=== PATIENT | female | born 1980 | race Caucasian/White ===

== ENCOUNTER → 2024-04-04 14:25 | Outpatient (BNVA) | payer MEDICAID, SELFPAY | PROVIDERS: Visit Provider Orthopaedic Surgery | DX: M54.9 Dorsalgia, unspecified (principal); M54.42 Lumbago with sciatica, left side | CPT/HCPCS: 72072; 72100; 99204 ==

== ENCOUNTER → 2024-04-06 12:46 | Outpatient (BNVA) | payer MEDICAID, SELFPAY | PROVIDERS: Visit Provider Orthopaedic Surgery | DX: Z09 Encounter for follow-up examination after completed treatment for conditions other than malignant neoplasm (principal) | CPT/HCPCS: 99214 ==

== ENCOUNTER 2024-04-12 11:38 | Inpatient (IN) | payer MEDICAID, SELFPAY ==
[2024-04-12] VITALS (23 sets, daily range): BP systolic 94–149; BP diastolic 65–105; PULSE 88–105; RESP 13–20; TEMP 36.2–36.9; O2SAT 90–100; BMI 34.0
[2024-04-12 06:27] LABS: Glucose Point of Care 135 mg/dL (70-110)
--- NOTE | 2024-04-12 06:36 | W.PM.OPSUD ---
Surgery/Procedure H&P Update DATE OF PROCEDURE: April 12, 2024 DATE H&P PERFORMED: 04/06/24 H&P UPDATE INFORMATION: I have reviewed H&P completed within last 30 days, I have examined patient prior to procedure and No changes to prior documentation PLANNED PROCEDURE: Operation Date: 04/12/24 07:00 Proposed Procedures p Spinal Fusion PSF(Not Applicable) - Anupam Garcia DO s Thoracic Decompression(Not Applicable) - Anupam Garcia DO
--- NOTE | 2024-04-12 06:42 | ANES.PREANE2 ---
Pre-Anesthetic Assessment Height/Weight: Height 1.55 m Weight 81.647 kg Temp Pulse Resp BP Pulse Ox O2 Del Method 97.1 F L 105 H 18 138/105 98 Room Air 04/12/24 05:59 04/12/24 05:59 04/12/24 05:59 04/12/24 05:59 04/12/24 05:59 04/12/24 05:59 Operation Date: 04/12/24 07:00 Proposed Procedures p Spinal Fusion PSF(Not Applicable) - Anupam Garcia DO s Thoracic Decompression(Not Applicable) - Anupam Garcia DO Familial anesthetic complications: None Was Beta Don taken within 24 hours: N/A Was Clonidine taken within 24 hours: N/A Last intake: Intake Last Liquid Date 04/11/24 Last Liquid Time 23:59 Last Solid Date 04/11/24 Last Solid Time 18:00 Social Tobacco and No alcohol Exam alert, oriented x 3, clear to auscultation bilaterally and regular rate & rhythm Airway Mallampati: Class II Dentition: other (none) Metabolic Diabetes Mellitus Anesthetic Plan ASA status: 3 Anesthesia: General Risk of > 500 ml blood loss (7ml/kg in children): Yes, adequate IV access and fluids planned Medications/Allergies Home Medications Medication Instructions Recorded Confirmed Last Taken Type gabapentin 300 mg capsule 300 mg PO TID 04/04/24 04/11/24 04/11/24 History trazodone 100 mg tablet 100 mg PO BEDTIME 04/04/24 04/11/24 04/11/24 History dulaglutide 0.75 mg/0.5 mL 0.75 mg SUBCUT .WEEKLY 04/11/24 04/11/24 04/04/24 History subcutaneous pen injector (Trulicity) insulin glargine 100 unit/mL (3 20 unit SUBCUT QAM 04/11/24 04/11/24 04/11/24 History mL) subcutaneous pen (Lantus Solostar U-100 Insulin) insulin lispro 100 unit/mL 15 unit SUBCUT TID 04/11/24 04/11/24 04/11/24 History subcutaneous pen metformin 500 mg tablet 500 mg PO BID 04/11/24 04/11/24 04/11/24 History quetiapine 50 mg tablet (Seroquel) 50 mg PO DAILY 04/11/24 04/11/24 04/11/24 History Allergies Allergy/AdvReac Type Severity Reaction Status Date / Time No Known Allergies Allergy Verified 04/11/24 11:58 [facility] Anesthesia Social History Smoking and tobacco/nicotine status: unknown if used tobacco/nicotine Data Anesthesia 04/12/24 06:24 04/12/24 06:24 Cardiac Studies: No Data to Display
[2024-04-12 06:43] LABS: Basophils % 0.6 %; Eosinophils # 0.1 10^3/uL (0.0-0.8); Eosinophils % 2.1 %; Hematocrit 41.3 % (36-47); Lymphocytes # 1.8 10^3/uL (0.8-4.8); Lymphocytes % 28.4 %; Mean Corpuscular HGB Conc 32.2 g/dL (30-55); Mean Corpuscular Hemoglobin 27.8 pg (27-33); Mean Corpuscular Volume 86.2 fl (85-98); Mean Platelet Volume 9.9 fL (7.4-10.4); Monocytes # 0.4 10^3/uL (0.2-0.9); Neutrophils # 3.89 10^3/uL (1.8-7.7); Neutrophils % 61.6 %; Nucleated Red Blood Cells % 0 %; Platelet Count 220 10^3/cmm (157-399); Red Blood Count 4.79 10^6/uL (3.85-5.65); Red Cell Distribution Width 14.3 % (12.1-15.1); White Blood Count 6.31 10^3/uL (3.29-11.43)
[2024-04-12 06:59] LABS: Anion Gap 16.4 (5-19); Blood Urea Nitrogen 12 mg/dL (6-20); Calcium 9.2 mg/dL (8.5-10.5); Carbon Dioxide 27 mmol/L (22-29); Chloride 98 mmol/L (98-107); Creatinine Clr Calc Pharmacy 117.0691; Glomerular Filtration Rate 109.1 mL/min (90-130); Glucose 130 mg/dL (65-115); Osmolality Calculated 286 mOsm/kg (285-295); Potassium 4.4 mmol/L (3.5-5.1); Sodium 137 mmol/L (136-145)
[2024-04-12] MEDS: ceFAZolin 2,000 mg SDV 2000 MG IVP ×3 (08:00→23:35)
[2024-04-12] MEDS: lidocaine-epi 1% 20 mL INJ INJECTION (08:40)
[2024-04-12] MEDS: VANCOMYCIN ADD-Vantage 1,000 MG VIAL 1000 MG XX (08:41)
[2024-04-12] MEDS: heparin, porcine 1,000 unit/mL INJ 10 mL 10000 UNIT IRRIGATION (08:42)
--- NOTE | 2024-04-12 09:47 | PC.NURSE ---
updated patient's family at [id number]
--- NOTE | 2024-04-12 11:11 | P.OP_ITS ---
Operative Report Date of procedure: April 12, 2024 Pre-op diagnosis: L1 burst fracture Kyphotic deformity Post-op diagnosis: same Procedure done: 1. T10-L3 posterior spine fusion 2. T10-L3 posterior spine instrumentation 3. T12-L1 laminectomy and bilateral facetectomies 4. L1-L2 laminectomy and bilateral facetectomies 5. Kyphotic deformity correction 6. Use of computer navigation stereotactic for the spine 7. Bone marrow aspirate from right iliac crest 8. Use of autograft from same incision 9. Use of allograft Surgeon: Anupam Garcia DO Estimated blood loss (mL): 500 Procedure: 1. T10-L3 posterior spine fusion 2. T10-L3 posterior spine instrumentation 3. T12-L1 laminectomy and bilateral facetectomies 4. L1-L2 laminectomy and bilateral facetectomies 5. Kyphotic deformity correction 6. Use of computer navigation stereotactic for the spine 7. Bone marrow aspirate from right iliac crest 8. Use of autograft from same incision 9. Use of allograft Patient is brought to the operative suite after undergoing anesthesia was placed in the prone position. All areas of impingement were well-padded. Patient was prepped and draped in the normal sterile fashion. Skin incision was made from T10 down to L3. Subperiosteal dissection was made out to the transverse processes of T10-L3 bilaterally. Next attention was brought to getting the bone marrow aspirate. This was done by making a skin incision over the right iliac crest. The regenerate cell bone marrow aspiration kit was used. The awl was inserted into the iliac crest. And then the bone marrow aspirate was aspirated from the right iliac crest. This was then used on the bone graft that was taken. As well as mixed with the ostial amp bone graft. Next attention was brought to placing the fiducial for the computer navigation. This was done by placing 2 pins into the right iliac crest. The fiducial was attached to the 2 pins. The 2 pins were later removed from the iliac crest. Next the C-arm was brought in to spin around the patient. This information was later used for placing pedicle screws. Next attention was brought to placing pedicle screws. This was done by using a high-speed bur to start the starting point of the pedicle followed by using the computer navigated gearshift. Followed by the pedicle feeler. Followed by placing the screw using computer navigation. Screws were placed at L3 bilaterally L2 bilaterally. L1 was skipped due to the severity of the burst fracture. Screws were then placed at T12 bilaterally, T11 bilaterally and T10 bilaterally. Next attention was brought to the laminectomies. T12-L1 space was identified first. Laminectomy was performed by using a rongeur to take down the spinous processes. The high-speed bur was then used to perform the laminectomy as well as facetectomies bilateral. Remaining bone was used taken down with the Jocelin son rongeur. This was later used for bone graft. The T12 nerve roots were identified bilaterally and completely freed from the facet joints. This was done bilaterally. The L1 nerve roots were traced around the L1 pedicles. Next attention was brought to the L1-L2 level. Again the spinous process was taken down with a rongeur. The high-speed bur was used to take down the lamina as well as the facets bilaterally of L1-L2. The Kerrison rongeur was used to take the remaining bone. The L1 nerve was completely freed up from the facets bilaterally and the ligamentum flavum was taken down as well. Ligamentum flavum was taken down to T12-L1 level as well. The L5 to nerve was traced from the L to pedicles bilaterally now that the bone is completely freed from the posterior aspect of the spine attention can be brought to correcting the deformity. The deformity was corrected by placing a straight hernan. The L2 and L3 screws were locked to the hernan distally bilaterally. And then a reduction tool was used on the T12 screw. The hernan was reduced into the tulips bilaterally. Screws remain loose. And then the hernan beard was placed in the T12 vertebrae was distracted superiorly. In order to facilitate reduction of the kyphosis by reducing the spine to the hernan as well as distracting the T12 vertebrae vertical to the L1 fracture. Next the screws were sequentially reduced into the hernan bilaterally up to T10. The screws were then torqued and locked in position from T10 down to L3. AP lateral fluoroscopy was taken and showed that the fracture and kyphosis was reduced. Wounds were then irrigated. Vancomycin powder was placed as well as a deep drain. And then wound was closed in a layered fashion with 0 Vicryl 2-0 Vicryl and Monocryl suture. Sterile dressings were applied and patient was transferred to the PACU in stable condition.
[2024-04-12] MEDS: midazolam 1 mg/mL INJ 2 mL 2 MG IVP (11:33)
[2024-04-12] MEDS: fentaNYL 50 mcg/mL INJ 2mL IVP (12:00)
--- NOTE | 2024-04-12 12:28 | XR_ITS ---
WS: [id number] C-ARM RADIOGRAPHS LUMBAR SPINE; 3 IMAGES HISTORY: OR PIC, SPINAL FUSION COMPARISON: None available. Intraoperative imaging during spinal fusion at the thoracolumbar junction. Pedicle screws and vertica l rods are identified and extends from T10-L3. XR/XR lumbar spine 2-3V* [id number] IMPRESSION: Intraoperative imaging during spinal fusion at the thoracolumbar junction. Fusi on stabilizing the severe L1 compression fracture.
[2024-04-12 12:29] LABS: Glucose Point of Care 189 mg/dL (70-110)
--- NOTE | 2024-04-12 12:30 | ANE.PACU2 ---
Inpatient post-anesthesia follow up: Airway intact: Yes Vital signs: Temperature 97.9 F Pulse Rate 101 Respiratory Rate 16 Blood Pressure 149/97 Pulse Oximetry 95 Oxygen Delivery Me thod Nasal Cannula Oxygen Flow Rate 3 Fraction of Inspir ed Oxygen Hydration adequate: Yes Nausea and vomiting: No Pain level: 1 Mental status: Baseline
[2024-04-12] MEDS: lactated ringers 1,000 ML 30 ML IV (13:19)
[2024-04-12] MEDS: ketorolac 30 mg/mL INJ IVP ×2 (13:20→23:36)
[2024-04-12] MEDS: morphine 4 mg/mL SDV 1 mL 2 MG IVP ×3 (13:20→21:31)
[2024-04-12] MEDS: HYDROcodone-acetaminophen 5-325 mg Tablet PO ×2 (14:54→20:33)
[2024-04-12] MEDS: gabapentin 300 mg Capsule PO ×2 (14:55→20:33)
[2024-04-12 16:36] LABS: Glucose Point of Care 241 mg/dL (70-110)
[2024-04-12] MEDS: metformin 500 mg Tablet PO (17:28)
[2024-04-12] MEDS: docusate sodium 100 mg Capsule PO (17:28)
[2024-04-12] MEDS: insulin lispro 100 unit/1 mL 15 UNIT SUBCUT (17:33)
[2024-04-12] MEDS: trazodone 100 mg Tablet PO (20:33)
[2024-04-13 01:17] VITALS: BP 104/71
[2024-04-13] MEDS: HYDROcodone-acetaminophen 5-325 mg Tablet PO ×3 (01:18→13:40)
[2024-04-13 03:45] VITALS: BP 115/75; PULSE 95; RESP 19; TEMP 36.7; O2SAT 98
[2024-04-13 05:11] LABS: Basophils % 0.3 %; Eosinophils % 0.4 %; Hematocrit 29.5 % (36-47); Lymphocytes # 1.8 10^3/uL (0.8-4.8); Lymphocytes % 26.8 %; Mean Corpuscular HGB Conc 31.5 g/dL (30-55); Mean Corpuscular Volume 88.9 fl (85-98); Mean Platelet Volume 10.9 fL (7.4-10.4); Monocytes # 0.5 10^3/uL (0.2-0.9); Monocytes % 6.9 %; Neutrophils # 4.44 10^3/uL (1.8-7.7); Neutrophils % 65.2 %; Nucleated Red Blood Cells % 0 %; Platelet Count 192 10^3/cmm (157-399); Red Blood Count 3.32 10^6/uL (3.85-5.65); Red Cell Distribution Width 14.7 % (12.1-15.1); White Blood Count 6.82 10^3/uL (3.29-11.43)
[2024-04-13] MEDS: ketorolac 30 mg/mL INJ IVP ×2 (05:36→12:15)
[2024-04-13] MEDS: insulin glargine 100 units/1 mL 20 UNIT SUBCUT (05:37)
[2024-04-13 06:32] LABS: Alanine Aminotransferase 10 U/L (0-33); Albumin Level 3.4 g/dL (3.5-5.2); Alkaline Phosphatase 58 U/L (35-105); Anion Gap 14.3 (5-19); Aspartate Amino Transferase 27 U/L (0-32); Blood Urea Nitrogen 26 mg/dL (6-20); Calcium 7.7 mg/dL (8.5-10.5); Carbon Dioxide 23 mmol/L (22-29); Chloride 98 mmol/L (98-107); Creatinine Clr Calc Pharmacy 70.9267; Globulin 2.3 g/dL (1.3-4.6); Glomerular Filtration Rate 60.5 mL/min (90-130); Glucose 245 mg/dL (65-115); Osmolality Calculated 285 mOsm/kg (285-295); Potassium 4.3 mmol/L (3.5-5.1); Sodium 131 mmol/L (136-145); Total Bilirubin 0.2 mg/dL (0.15-1.2); Total Protein 5.7 g/dL (6.6-8.7)
[2024-04-13 07:47] VITALS: BP 98/60; PULSE 95; RESP 16; TEMP 36.6; O2SAT 99
[2024-04-13] MEDS: quetiapine 25 mg Tablet 50 MG PO (08:29)
[2024-04-13] MEDS: metformin 500 mg Tablet PO (08:30)
[2024-04-13] MEDS: gabapentin 300 mg Capsule PO (08:30)
[2024-04-13] MEDS: docusate sodium 100 mg Capsule PO (08:30)
[2024-04-13] MEDS: insulin lispro 100 unit/1 mL 15 UNIT SUBCUT ×2 (08:31→12:17)
[2024-04-13] MEDS: ceFAZolin 2,000 mg SDV 2000 MG IVP (08:31)
--- NOTE | 2024-04-13 11:14 | PM.DCS ---
Discharge Providers Date of Admission: 04/12/24 11:38 Date of Discharge: April 13, 2024 Attending Provider at Admission: Anupam Garcia DO Attending Provider at Discharge: Anupam Garcia DO Physical Exam Narrative: Patient doing well up ambulating pain relatively controlled. Urinary Catheter Management: Massey: Cath Placed During This Visit: yes, but has since been removed by the nurse Reason for Continuing Indwelling Catheter: Decision to DC Catheter Urinary Catheter Date of Insertion: 04/12/24 Urinary Catheter Time of Insertion: 07:15 Date Urinary Catheter Removed: 04/13/24 Time Urinary Catheter Discontinued: 03:00 Discharge Data Studies Completed and Pending Pending at discharge Category Date Time Status C-arm Fluoroscopy [id number] Routine Exams 04/12/24 12:27 Ordered XR lumbar spine 2-3V* [id number] Routine Exams 04/12/24 12:28 Taken Laboratory Results WBC 6.82 10^3/uL (3.29-11.43) 04/13/24 04:50 RBC 3.32 10^6/uL (3.85-5.65) L 04/13/24 04:50 Hgb 9.30 g/dL (11.27-16.99) L D 04/13/24 04:50 Hct 29.5 % (36-47) L 04/13/24 04:50 MCV 88.9 fl (85-98) 04/13/24 04:50 MCH 28.0 pg (27-33) 04/13/24 04:50 MCHC 31.5 g/dL (30-55) 04/13/24 04:50 RDW 14.7 % (12.1-15.1) 04/13/24 04:50 Plt Count 192 10^3/cmm (157-399) 04/13/24 04:50 MPV 10.9 fL (7.4-10.4) H 04/13/24 04:50 Neut % (Auto) 65.2 % 04/13/24 04:50 Lymph % (Auto) 26.8 % 04/13/24 04:50 [place] % (Auto) 6.9 % 04/13/24 04:50 Eos % (Auto) 0.4 % 04/13/24 04:50 Baso % (Auto) 0.3 % 04/13/24 04:50 Neut # (Auto) 4.44 10^3/uL (1.8-7.7) 04/13/24 04:50 Lymph # (Auto) 1.8 10^3/uL (0.8-4.8) 04/13/24 04:50 [place] # (Auto) 0.5 10^3/uL (0.2-0.9) 04/13/24 04:50 Eos # (Auto) 0.0 10^3/uL (0.0-0.8) 04/13/24 04:50 Baso # (Auto) 0.0 10^3/uL (0.0-0.1) 04/13/24 04:50 Nucleated RBC % (auto) 0 % 04/13/24 04:50 Nucleated RBCs # 0.0 /100WBC 04/13/24 04:50 Sodium 131 mmol/L (136-145) L 04/13/24 06:04 Potassium 4.3 mmol/L (3.5-5.1) 04/13/24 06:04 Chloride 98 mmol/L (98-107) 04/13/24 06:04 Carbon Dioxide 23 mmol/L (22-29) 04/13/24 06:04 Anion Gap 14.3 (5-19) 04/13/24 06:04 BUN 26 mg/dL (6-20) H 04/13/24 06:04 Creatinine 1.0 mg/dL (0.5-0.9) H 04/13/24 06:04 GFR Calculation 60.5 mL/min (90-130) L 04/13/24 06:04 Glucose 245 mg/dL (65-115) H 04/13/24 06:04 POC Glucose 241 mg/dL (70-110) H 04/12/24 16:28 Calculated Osmolality 285 mOsm/kg (285-295) 04/13/24 06:04 Calcium 7.7 mg/dL (8.5-10.5) L 04/13/24 06:04 Total Bilirubin 0.2 mg/dL (0.15-1.2) 04/13/24 06:04 AST 27 U/L (0-32) 04/13/24 06:04 ALT 10 U/L (0-33) 04/13/24 06:04 Alkaline Phosphatase 58 U/L (35-105) 04/13/24 06:04 Total Protein 5.7 g/dL (6.6-8.7) L 04/13/24 06:04 Albumin 3.4 g/dL (3.5-5.2) L 04/13/24 06:04 Globulin 2.3 g/dL (1.3-4.6) 04/13/24 06:04 Blood Type A Positive 04/12/24 06:24 Rho(D) Type Rh positive 04/12/24 06:24 Antibody Screen Negative 04/12/24 06:24 Vitals Last Vital Signs Temp 97.8 F 04/13/24 07:47 Pulse 95 04/13/24 07:47 Resp 16 04/13/24 07:47 BP 98/60 04/13/24 07:47 Pulse Ox 99 04/13/24 07:47 O2 Del Method Room Air 04/13/24 07:47 O2 Flow Rate 3 04/12/24 12:30 Discharge Plan Discharge Patient Disposition: Home Condition: Stable Prescriptions: New hydrocodone-acetaminophen 5-325 mg tablet 1 - 2 tab PO .Q4-6H Qty: 40 0RF Continued trazodone 100 mg tablet 100 mg PO BEDTIME gabapentin 300 mg capsule 300 mg PO TID metformin 500 mg Tablet 500 mg PO BID insulin glargine [Lantus Solostar U-100 Insulin] 100 unit/mL (3 mL) Insulin Pen 20 unit SUBCUT QAM Trulicity 0.75 mg/0.5 mL Pen Injector 0.75 mg SUBCUT .WEEKLY insulin lispro 100 unit/mL Insulin Pen 15 unit SUBCUT TID Rx Instructions: takes on sliding scale starts at greater than 120(blood sugar) quetiapine [Seroquel] 50 mg Tablet 50 mg PO DAILY Discharge Orders: Discharge Order (Routine); Ordered 04/13/24 Ordered By: Anupam Garcia Discharge Diet: Advance as tolerated Discharge Activity: Limit activity as instructed Patient Instructions: Acute Wound Care (DC), Opioid Safety, Post Anesthesia Care Activity Restrictions/Additional Instructions: Thank you for [facility] for your care! The following is a list of instructions, from your provider, to follow upon your discharge to ensure you have the optimal recovery from your recent injury orsurgery. Follow-up care is a dailey part of your treatment and safety. Be sure to make and go to all appointments, and call your doctor if you are having problems. If you do not already have a follow-up appointment made, call Dr. Garcia office in the next 1-3 days to make follow up appointment for 1 weeks at [phone]. It is also a good idea to know your test results and keep a list of the medicines you take. Medications will be prescribed for you at your provider's discretion. These medications are to be used as instructed; if they are taken more often that prescribed they will not be refilled early and in most cases will not be refilled at all. > When a refill is needed,you should contact daniela van 2-3 business days before your prescription runs out. Medications will NOT be refilled by environmental management specialist providers after hours! > Many pain medications contain Tylenol (Acetaminophen). Do not consume more than 4,000 mg of Tylenol per day in total with any combination ofmedications. > Pain medications can cause constipation. Please use an over the counter stool softener as directed, while taking pain medications. Consulty our local pharmacist with questions or recommendations on stool softeners. If constipation persists, contact our office or your primary care provider. > While under our care,you are not to receive pain medications or other controlled substances from any other provider unless our office is notified and approves. Any attempts to do so will result in refusal to prescribe any further pain medications and possible dismissal from our practice. ? Keep dressing on until seen in clinic in 1 week. ? Showering is permitted, however we ask that you do not take a bath, sit in a whirlpool / Jacuzzi, or go swimming for 1 month. For only the first 2 days after surgery, lt wilt be necessary for you to cover your wound/dressing with plastic and tape to keep it dry. ? Walking is essential for the healing process after surgery. We would like you to slowly advance your walking. This should be done on relatively flat clear ground (inside or out) or can be done on a treadmill. Remember this goal does not have to happen all at once, slowly increase your distance and duration. This can be broken into more more than one walk per day as tolerated. Patients who walk as directed after surgery rarely require Physical Therapy. In the unlikely event this issue arises your provider will direct hospital staff to make the appropriate arrangements. ? No lifting over 5 pounds {a gallon of milk) or bending/twisting until further notice. Each of these activities places an unnecessary amount of stress onto the body and can impede the delicate healing process. > Instead of bending at the waist, keep your back straight and bend at the knees. > Instead of twisting your torso, keep your back straight and turn your entire body with your feet. ? You may sleep in any position which makes you comfortable. Many patients find comfort sleeping in a reclining chair. It is not abnormal to have difficulty sleeping for the first several weeks following your surgery. We recommend trying Benadry! or Tylenol PM as directed to help with your sleeping difficulties. Both medications are over the counter and available withoutprescription. ? NO SMOKING!!! Smoking dramatically increases the probability of developing postoperative wound infections. ? Common complaints after lumbar and/or thoracic spine surgery include, but are not limited to: numbness and/or tingling in the legs, pain around the incision and surrounding tissues, muscle spasms, or stiffness of the middle to low back. Contact our office if these symptoms persist or if an acute change occurs. ? No driving for the first 3-5days, and not while taking narcotics until seen at your follow-up appointment and cleared. There are no restrictions for riding on short trips, however if you take a longer trip, arrangements should be made to make regular stops to get out of the vehicle and stretch . ? Swelling is an unfortunate event that will take place with any surgery and is the primary source of your postoperative discomfort. While walking and regular approved activities helps control inflammation, there are additional steps you can take to minimizeswelling. > Place ice over the surgical site and surrounding tissue for twenty minutes, followed by applying a low/medium heat (heating pad) for an additional twenty minutes every 1-2 hours as needed for painrelief. > You may use of over the counter anti-inflammatory medications (Ibuprofen, Motrin, Aleve, Advil, etc) as directed on the package label. These types of medicines wm significantly reduce the amount of discomfort you experience after surgery from swelling. It should be noted that if you have and allergy to any of these medications, or a history of ulcers or kidney disease you should consult you primary care provider prior to starting these medications. Discharge Attestations Time Spent in Discharge Care*: less than 30 min Quality Metrics Clinical Quality Measures [ No reported AMI, CVA or VTE this stay] Coding Level of Care Code Acute Code for Chg Fwd
[2024-04-13 11:47] VITALS: BP 99/68; PULSE 107; RESP 17; TEMP 36.8; O2SAT 96
--- NOTE | 2024-04-13 14:00 | PC.NURSE ---
There are no out side pharmacies open today because it is Thanksgiving. Patient was discharged to her home in [place] which also has no pharmacies open either. Verbal order given to dispense two more Hydrocodone 5/325mg for patient to use at home. Dispenced as ordered.
[2024-04-13] MEDS: HYDROcodone-acetaminophen 5-325 mg Tablet 2 TAB PO (14:27)
== END 2024-04-13 14:00 | disposition home or self-care (01) | DRG 458 ==
LOC: MEDSURG 11:49
PROVIDERS: Anesthesiology; Admitting Provider Orthopaedic Surgery; Visit Provider Orthopaedic Surgery
PROC: 0RG7071 Fusion of 2 to 7 Thoracic Vertebral Joints with Autologous Tissue Substitute, Posterior Approach, Posterior Column, Open Approach (ICD-10-PCS; principal; 2024-04-12 07:00)
PROC: 0RG7071 Fusion of 2 to 7 Thoracic Vertebral Joints with Autologous Tissue Substitute, Posterior Approach, Posterior Column, Open Approach (ICD-10-PCS; CPT 63003; 2024-04-12 07:00)
DX: S32.012A Unstable burst fracture of first lumbar vertebra, initial encounter for closed fracture (principal); W19.XXXA Unspecified fall, initial encounter; E11.9 Type 2 diabetes mellitus without complications; Z79.4 Long term (current) use of insulin; Z79.84 Long term (current) use of oral hypoglycemic drugs; Z79.85 Long-term (current) use of injectable non-insulin antidiabetic drugs
CPT/HCPCS: 36415; 36416; 51702; 72100; 76000; 80048; 80053; 82962; 85025; 86850; 86900; 96372; 97161; 97530; C1713; J0131; J0330; J0690; J1100; J1171; J1644; J1815; J1885; J2250; J2270; J2371; J2405; J2704; J3010; J3370; J3490; J7120; L0460

== ENCOUNTER → 2024-04-27 15:21 | Outpatient (BNVA) | payer MEDICAID, SELFPAY | PROVIDERS: Visit Provider Orthopaedic Surgery | DX: Z98.1 Arthrodesis status (principal) | CPT/HCPCS: 99024 ==

== ENCOUNTER → 2024-06-01 16:07 | Outpatient (BNVA) | payer MEDICAID, SELFPAY | PROVIDERS: Visit Provider Orthopaedic Surgery | DX: Z98.1 Arthrodesis status (principal) | CPT/HCPCS: 72072; 72100; 99024 ==

== ENCOUNTER 2024-06-07 14:16 | Inpatient (IN) | payer MEDICAID, SELFPAY ==
--- NOTE | 2024-06-04 11:17 | SUR.PREOP ---
1116 Spoke with phone number [phone] and she(Nichole soon to be [id number]) stated she was not there and would relay message to her to call me back, and needed to go over her health history and medications, stated I would be here for another hr and reiterated time of arrival is 12 noon tomorrow,she verbalized understanding
--- NOTE | 2024-06-04 11:26 | SUR.PREOP ---
1125 patient called back and stated she could not get a ride down here and [facility] stated they did not have enough notice, I stated i would inform Dr Garcia and Ethan about this
[2024-06-07] VITALS (26 sets, daily range): BP systolic 110–167; BP diastolic 56–115; PULSE 98–109; RESP 14–20; TEMP 36.7–37; O2SAT 92–100; BMI 33.0
[2024-06-07 10:49] LABS: Glucose Point of Care 124 mg/dL (70-110)
[2024-06-07] MEDS: sodium chloride 0.9% 1,000 ML 30 ML IV (10:54)
--- NOTE | 2024-06-07 10:54 | W.PM.OPSUD ---
Surgery/Procedure H&P Update DATE OF PROCEDURE: June 07, 2024 DATE H&P PERFORMED: 06/01/24 H&P UPDATE INFORMATION: I have reviewed H&P completed within last 30 days, I have examined patient prior to procedure and No changes to prior documentation PREOP DIAGNOSIS: wound infection PLANNED PROCEDURE: Operation Date: 06/07/24 11:45 Proposed Procedures p Incision and Drainage of Back(Not Applicable) - Anupam Garcia DO
--- NOTE | 2024-06-07 10:59 | ANES.PREANE2 ---
Pre-Anesthetic Assessment Height/Weight: Height 5 ft 1 in Weight 175 lb Temp Pulse Resp BP Pulse Ox O2 Del Method 98.0 F 98 16 114/80 99 Room Air 06/07/24 10:32 06/07/24 10:32 06/07/24 10:32 06/07/24 10:32 06/07/24 10:32 06/07/24 10:32 Preop Diagnosis: wound infection Operation Date: 06/07/24 11:45 Proposed Procedures p Incision and Drainage of Back(Not Applicable) - Anupam Garcia, DO Was Beta Don taken within 24 hours: N/A Was Clonidine taken within 24 hours: Yes Last intake: Intake Last Liquid Date 06/06/24 Last Liquid Time 20:00 Last Solid Date 06/06/24 Last Solid Time 20:00 Social Tobacco and No alcohol Exam alert, oriented x 3 and regular rate & rhythm Decreased breath sounds bilaterally Airway Submandibular: within normal limits Cervical ROM: within normal limits Mallampati: Class II Comments: Comments: Edentulous Anesthetic Plan ASA status: 3 Anesthesia: General Other: No prior issues with anesthesia NPO since yesterday History of type 2 diabetes on insulin. Preop BS 124. Trulicity taken 05/30/2024 Current smoker Prior labs acceptable for procedure Plan for GETA Medications/Allergies Home Medications Medication Instructions Recorded Confirmed Last Taken Type gabapentin 300 mg capsule 300 mg PO TID 04/04/24 06/06/24 06/06/24 History dulaglutide 0.75 mg/0.5 mL 0.75 mg SUBCUT .WEEKLY 04/11/24 06/06/24 05/30/24 History subcutaneous pen injector (Trulicity) insulin glargine 100 unit/mL (3 20 unit SUBCUT QAM 04/11/24 06/06/24 06/06/24 History mL) subcutaneous pen (Lantus Solostar U-100 Insulin) insulin lispro 100 unit/mL 1 unit SUBCUT TID 04/11/24 06/06/24 06/06/24 History subcutaneous pen metformin 500 mg tablet 500 mg PO BID 04/11/24 06/06/24 06/06/24 History oxycodone 5 mg capsule 5 mg PO TID PRN pain 10 days #30 06/01/24 06/06/24 06/06/24 Rx caps baclofen 10 mg tablet 10 mg PO TID 06/06/24 06/06/24 06/06/24 History clonidine HCl 0.1 mg tablet 0.1 mg PO BID 06/06/24 06/06/24 06/06/24 History diclofenac sodium 75 mg 75 mg PO BID 06/06/24 06/06/24 06/06/24 History tablet,delayed release fluoxetine 40 mg capsule (Prozac) 80 mg PO DAILY 06/06/24 06/06/24 06/06/24 History Allergies Allergy/AdvReac Type Severity Reaction Status Date / Time hydrocodone Allergy ADR-Itching Verified 06/06/24 12:24 lithium Allergy Unknown Verified 06/06/24 12:15 mushroom Allergy Unknown Verified 06/06/24 12:15 trazodone Allergy Unknown Verified 06/06/24 12:15 Current Medications Generic Name Dose Route Start Last Admin Trade Name Freq PRN Reason Stop Dose Admin Sodium Chloride 1,000 mls @ 30 mls/hr 06/07/24 10:15 06/07/24 10:54 Sodium Chloride 0.9% IV 06/08/24 10:14 30 mls/hr .Q24H BRITTANY Administration PFSH Anesthesia Social History Smoking and tobacco/nicotine status: unknown if used tobacco/nicotine Data Anesthesia Cardiac Studies: No Data to Display
[2024-06-07] MEDS: fentaNYL 50 mcg/mL INJ 2mL IVP (11:25)
[2024-06-07] MEDS: ceFAZolin 2,000 mg SDV 2000 MG IVP (11:27)
[2024-06-07] MEDS: VANCOMYCIN ADD-Vantage 1,000 MG VIAL 2000 MG XX (12:19)
--- NOTE | 2024-06-07 12:26 | XR_ITS ---
WS: [id number] Thoracic spine, C-arm fluoroscopy views, 06/07/2024 Clinical Data: OR PICS Comparison: Thoracic spine, 06/01/2024 Findings: Dr. Garcia placed a catheter which ends at the L1 vertebral body. XR/XR thoracic spine 2V [id number] Impression: Catheter placement.
--- NOTE | 2024-06-07 12:57 | PM.OP ---
Operative Report Date of procedure: June 07, 2024 Pre-op diagnosis: Wound infection of back wound Post-op diagnosis: same Procedure done: Irrigation debridement down to bone of back wound Specimens removed/disposition: Cultures were taken of the back wound Surgeon: Anupam Garcia DO Estimated blood loss (mL): 25 Procedure: Irrigation debridement down to bone of back wound. Is brought to the procedure after undergoing anesthesia patient placed in prone position. There were small openings in the wound. These were ellipsed out with sharp dissection down to bleeding tissue. Anesthesia was opened up all the way. There is a pocket of fluid that is collected this was taken for culture. The wound was completely open since it was replaced look like there was an opening in the thoracolumbar fascia. This was opened and the entire wound was open. Curettes were used to scrape out bone graft that was free. And wound was then irrigated with saline until the tissue looks like is bleeding and good tissue clean. The wound to clean at the end. Vancomycin powder was placed deep drain was placed wound was closed in layered fashion with PDS suture and nylon suture. Sterile dressings applied and patient is transferred to the PACU in stable addition.
[2024-06-07] MEDS: HYDROmorphone 1 mg/mL INJ 1 mL (13:29)
[2024-06-07] MEDS: HYDROmorphone 1 mg/mL INJ 1 mL 0.5 MG IVP (13:45)
[2024-06-07 14:06] LABS: Glucose Point of Care 149 mg/dL (70-110)
--- NOTE | 2024-06-07 14:17 | ANE.PACU2 ---
Inpatient post-anesthesia follow up: Airway intact: Yes Vital signs: Temperature 98.3 F Pulse Rate 90 Respiratory Rate 18 Blood Pressure 127/84 Pulse Oximetry 96 Oxygen Delivery Me thod Room Air Oxygen Flow Rate 2 Fraction of Inspir ed Oxygen Hydration adequate: Yes Nausea and vomiting: No Pain level: 1 Mental status: Baseline
--- NOTE | 2024-06-07 14:19 | PC.NURSE ---
This nurse took report from SHEMAR Perez in PACU at 1416.
[2024-06-07] MEDS: gabapentin 300 mg Capsule PO ×2 (14:54→19:38)
[2024-06-07] MEDS: baclofen 10 mg Tablet PO ×2 (14:54→19:38)
[2024-06-07] MEDS: oxyCODONE-APAP 10-325 mg Tablet PO ×3 (14:54→23:32)
[2024-06-07] MEDS: lactated ringers 1,000 ML 90 ML IV (14:55)
[2024-06-07] MEDS: VANCOMYCIN ADD-Vantage 1,000 MG in 0.9% NaCl ADD-Vantage 250 ML 250 MG IV ×2 (14:55→22:55)
--- NOTE | 2024-06-07 15:55 | PM.CONSULT ---
Providers/Reason For Consult Consulting Physician/Specialty*: Germaine Huerta MD / Infectious Disease Reason for Consult*: hardware infection Requesting Physician: Anupam Garcia DO Attending Physician: Anupam Garcia DO Primary Care Provider: BRAD DE MD History of Present Illness History of Present Illness Tasha Molina is a 43 year old female With a past medical history of diabetes mellitus, neuropathy, worsening back pain related to L1 burst fracture and kyphosis. . Patient underwent T10-L3 posterior spine fusion with decompression on 04/12/2024 she tolerated the procedure well and was discharged the next day. On outpatient follow-up on April 27, 2024 she continued to have pain, her incision was noted to have some mild drainage which continued to persist requesting cellulitis. An outpatient follow-up on June 01, 2024 the wound was noted to be red with persisting drainage with concern for underlying infection. Patient reports that over the holidays she has had multiple small abscesses over her body. She has a history of recurrent MRSA skin infections. She had a draining wound over her right elbow which appears to have opened up spontaneously. She states she visited the emergency room in [place] because she was concerned about bursitis. She has a remote history of bursitis in that same [facility] I&D years ago. States that she was not prescribed any antibiotics and discharged home. She followed up with her PCP as she had further small draining lesions over her left knee which have currently scabbed over. Her primary care provider prescribed clindamycin which patient finished 2 to 4 days ago, took the antibiotic for about 1 week. Both the right elbow wound and the left knee wound have currently scabbed over. Today she underwent I&D of the back wound. There was small openings in the wound. Operative fluid was encountered, specimensent for culture which is currently pending. There was noted to be an opening in the thoracolumbar fascia, concern is for underlying hardware infection. Review of Systems General: Reports: 10 or more systems reviewed and unremarkable except in HPI and below Const: Denies: fever(s), chills or body aches Eyes: Denies: change in vision, blurry vision or photophobia ENMT: Reports: hoarseness; Denies: throat pain, enlarged tonsils, odynophagia or nasal congestion Card: Denies: chest pain, palpitations, irregular heart rhythm, edema, swelling of feet/ankles, lightheadedness, pre-syncope, dyspnea on exertion or orthopnea Resp: Denies: dyspnea, productive cough, non-productive cough, wheezing, stridor, pain on inspiration, change in phlegm color, hemoptysis or chest congestion GI: Denies: abdominal pain, nausea, vomiting, hematemesis, coffee ground emesis, dysphagia, heartburn, diarrhea, constipation, GI cramping, change in stool character, hematochezia or melena : Denies: flank pain, difficulty voiding, dysuria, urinary frequency, urinary urgency, urinary hesitancy or hematuria Musc: Denies: neck pain, back pain, extremity pain, joint swelling, joint warmth or deformity Neuro: Denies: headache(s), numbness in extremities, weakness in extremities, sensory changes, difficulty walking, frequent falls, dizziness, vertigo, behavioral changes, Slurred speech present or seizure-like activity Psych: Denies: anxiety, depression, suicidal ideation or homicidal ideation Endo: Denies: polyuria, polydipsia, tired all the time, cold intolerance or hot flashes Lewis/Lymph: Denies: easy bruising or easy bleeding Medications/Allergies Home Medications Medication Instructions Recorded Confirmed Last Taken Type gabapentin 300 mg capsule 300 mg PO TID 04/04/24 06/06/24 06/06/24 History dulaglutide 0.75 mg/0.5 mL 0.75 mg SUBCUT .WEEKLY 04/11/24 06/06/24 05/30/24 History subcutaneous pen injector (Trulicity) insulin glargine 100 unit/mL (3 20 unit SUBCUT QAM 04/11/24 06/06/24 06/06/24 History mL) subcutaneous pen (Lantus Solostar U-100 Insulin) insulin lispro 100 unit/mL 1 unit SUBCUT TID 04/11/24 06/06/24 06/06/24 History subcutaneous pen metformin 500 mg tablet 500 mg PO BID 04/11/24 06/06/24 06/06/24 History oxycodone 5 mg capsule 5 mg PO TID PRN pain 10 days #30 06/01/24 06/06/24 06/06/24 Rx caps baclofen 10 mg tablet 10 mg PO TID 06/06/24 06/06/24 06/06/24 History clonidine HCl 0.1 mg tablet 0.1 mg PO BID 06/06/24 06/06/24 06/06/24 History diclofenac sodium 75 mg 75 mg PO BID 06/06/24 06/06/24 06/06/24 History tablet,delayed release fluoxetine 40 mg capsule (Prozac) 80 mg PO DAILY 06/06/24 06/06/24 06/06/24 History Allergies Allergy/AdvReac Type Severity Reaction Status Date / Time hydrocodone Allergy ADR-Itching Verified 06/06/24 12:24 lithium Allergy Unknown Verified 06/06/24 12:15 mushroom Allergy Unknown Verified 06/06/24 12:15 trazodone Allergy Unknown Verified 06/06/24 12:15 Current Medications Generic Name Dose Route Start Last Admin Trade Name Freq PRN Reason Stop Dose Admin Baclofen 10 mg 06/07/24 15:00 06/07/24 14:54 Baclofen 10 Mg Tablet PO 10 mg TID BRITTANY Administration Gabapentin 300 mg 06/07/24 15:00 06/07/24 14:54 Gabapentin 300 Mg Capsule PO 300 mg TID BRITTANY Administration Lactated Ringer's 1,000 mls @ 90 mls/hr 06/07/24 12:30 06/07/24 14:56 Lactated Ringers IV 0 mls/hr .[id number] BRITTANY Infusion Vancomycin HCl 1,000 mg/ 250 mls @ 250 mls/hr 06/07/24 12:30 06/07/24 14:55 Sodium Chloride IV 06/08/24 01:29 250 mls/hr Q12H BRITTANY Administration Protocol Oxycodone/Acetaminophen 1 - 2 tab 06/07/24 12:27 06/07/24 14:54 Oxycodone-Apap 10-325 Mg Tablet PO 2 tab Q4H PRN Administration MODERATE TO SEVERE PAIN PFSH Acute PFSH: Social History Smoking and tobacco/nicotine status: unknown if used tobacco/nicotine Vitals/I&O/Wt Last Vital Signs Temp 98.5 F 06/07/24 14:27 Pulse 109 H 06/07/24 15:26 Resp 16 06/07/24 15:26 BP 117/62 06/07/24 15:26 Pulse Ox 99 06/07/24 15:26 O2 Del Method Nasal Cannula 06/07/24 15:26 O2 Flow Rate 2 06/07/24 14:09 06/07/24 06/07/24 06/07/24 06:59 14:59 22:59 Intake Total 207.0 / 207.0 Output Total 10 Balance 197.0 / 197.0 Weight last 48 hrs Weight 79.379 kg Physical Exam Narrative: General: No acute distress, AO x3 HEENT: PERRLA, pupils bilaterally equal and reactive, pallors not present Chest: Normal vesicular breath sounds, no added sounds, equal good air entry bilaterally CVS: S1-S2 regular, no murmurs, no tachycardia, no gallops, no rubs Abdomen: Soft, nontender, no organomegaly, bowel sounds present Neuro: No focal deficits, no facial deformity, AO x3, power 5/5 in all limbs A&P Assessment and plan (1) Hardware complicating wound infection: 43-year-old lady recently having undergone posterior spinal fusion as noted above in March 2024, thereafter course complicated by wound dehiscence and infection. It appears during the past month she has had some draining wounds over the right elbow and her left knee which currently have scabbed over and are not showing any signs of active infection. She had been on clindamycin until a few days ago as prescribed by primary care physician. Today she underwent I&D of the back. Intraoperatively encountered to have a deep extending abscess. Cultures taken from the operating room, currently pending at this time. 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 High probability of MRSA infection currently Check blood cultures given recent history of multiple wounds, baseline CBC CMP CPK ESR and CRP. Hold off on placing PICC line until blood cultures negative for at least 48 hours. Patient will likely require extended course of antibiotics for the next 6 to 8 weeks. For now we will continue vancomycin with goal trough of 15-20 while patient is in the hospital. Discharge antibiotics to be decided based on cultures from the OR. will follow (2) Wound dehiscence: Consult Attestations Medical Necessity Statement: per admitting Coding Level of Care Code Acute Code for Chg Fwd High MDM includes number and complexity of problems actively addressed during encounter, amount and/or complexity of data reviewed/ordered and described risk of complication, morbidity or mortality of management as documented Diagnoses Hardware complicating wound infection T84.7XXA Wound dehiscence T81.30XA
--- NOTE | 2024-06-07 16:26 | PC.NURSE ---
Blood sugar reading at 1530 per pt dexcom read 159.
[2024-06-07] MEDS: cloNIDine 0.1 mg Tablet PO (17:03)
[2024-06-07] MEDS: metformin 500 mg Tablet PO (17:03)
[2024-06-07] MEDS: insulin lispro 100 unit/1 mL SUBCUT ×2 (17:04→22:55)
[2024-06-07] MEDS: docusate sodium 100 mg Capsule PO (17:04)
[2024-06-07] MEDS: ketorolac 30 mg/mL INJ IVP ×2 (17:04→23:00)
[2024-06-07 17:45] LABS: Alanine Aminotransferase 8 U/L (0-33); Albumin Level 3.2 g/dL (3.5-5.2); Alkaline Phosphatase 109 U/L (35-105); Anion Gap 18.5 (5-19); Aspartate Amino Transferase 9 U/L (0-32); Blood Urea Nitrogen 10 mg/dL (6-20); C Reactive Protein 78.7 mg/L (0.0-4.9); Calcium 8.3 mg/dL (8.5-10.5); Carbon Dioxide 23 mmol/L (22-29); Chloride 98 mmol/L (98-107); Creatine Phosphokinase 33 U/L (26-192); Creatinine Clr Calc Pharmacy 138.4052; Globulin 3.8 g/dL (1.3-4.6); Glomerular Filtration Rate 134.7 mL/min (90-130); Glucose 173 mg/dL (65-115); Osmolality Calculated 283 mOsm/kg (285-295); Potassium 4.5 mmol/L (3.5-5.1); Sodium 135 mmol/L (136-145); Total Bilirubin 0.2 mg/dL (0.15-1.2)
--- NOTE | 2024-06-07 17:49 | PHA.VACGOAL ---
Vancomycin Goal - Goal Vancomycin Goal:: 15-20 mg/L Vancomycin Indication:: Other - Therapy Day of therpy:: Day []of [] . Actual body weight (kg): 175 lb - Data Labs: WBC Cancelled 06/07/24 17:13 Corrected WBC Cancelled 06/07/24 17:13 RBC Cancelled 06/07/24 17:13 Hgb Cancelled 06/07/24 17:13 Hct Cancelled 06/07/24 17:13 MCV Cancelled 06/07/24 17:13 MCH Cancelled 06/07/24 17:13 MCHC Cancelled 06/07/24 17:13 RDW Cancelled 06/07/24 17:13 Sodium 135 mmol/L (136-145) L 06/07/24 17:13 Potassium 4.5 mmol/L (3.5-5.1) 06/07/24 17:13 Chloride 98 mmol/L (98-107) 06/07/24 17:13 Carbon Dioxide 23 mmol/L (22-29) 06/07/24 17:13 Anion Gap 18.5 (5-19) 06/07/24 17:13 BUN 10 mg/dL (6-20) 06/07/24 17:13 Creatinine 0.5 mg/dL (0.5-0.9) 06/07/24 17:13 GFR Calculation 134.7 mL/min (90-130) H 06/07/24 17:13 Treatment plan:: new consult Regimen:: 1000 MG Q8H TROUGH 06/08 2100
[2024-06-07 19:39] LABS: Basophils % 0.2 %; Hematocrit 22.9 % (36-47); Lymphocytes # 0.4 10^3/uL (0.8-4.8); Lymphocytes % 9.9 %; Mean Corpuscular HGB Conc 28.8 g/dL (30-55); Mean Corpuscular Hemoglobin 24.6 pg (27-33); Mean Corpuscular Volume 85.4 fl (85-98); Mean Platelet Volume 10.2 fL (7.4-10.4); Monocytes # 0.1 10^3/uL (0.2-0.9); Monocytes % 2.5 %; Neutrophils # 3.87 10^3/uL (1.8-7.7); Neutrophils % 87.2 %; Nucleated Red Blood Cells % 0 %; Platelet Count 151 10^3/cmm (157-399); Red Blood Count 2.68 10^6/uL (3.85-5.65); White Blood Count 4.44 10^3/uL (3.29-11.43)
[2024-06-07 19:42] LABS: Erythrocyte Sedimentation Rate 11 mm/hr (0-15)
[2024-06-07 20:48] LABS: Glucose Point of Care 304 mg/dL (70-110)
--- NOTE | 2024-06-07 22:09 | PC.NURSE ---
Addendum entered by Raquel Hunter RN 06/07/24 22:43: Patient has Dexcom. Original Note: Patient states she takes one unit of sliding scale Humalog per every 50 over 150 that her blood sugar is. Patient's blood sugar currently 276. Patient explains to me that she does her sliding scale insulin at home as below: blood glucose 150-199=1 unit insulin blood glucose 200-249=2 units insulin blood glucose 250-299=3 units insulin ect.
[2024-06-07 22:53] LABS: Estmated Average Glucose 134; Hemoglobin A1C 6.3 % (4.0-6.0)
[2024-06-08] VITALS (12 sets, daily range): BP systolic 113–138; BP diastolic 57–84; PULSE 90–102; RESP 15–18; TEMP 36.6–36.8; O2SAT 92–99
[2024-06-08] MEDS: lactated ringers 1,000 ML 90 ML IV (03:52)
[2024-06-08] MEDS: oxyCODONE-APAP 10-325 mg Tablet PO ×5 (03:52→21:59)
[2024-06-08] MEDS: VANCOMYCIN ADD-Vantage 1,000 MG in 0.9% NaCl ADD-Vantage 250 ML 250 MG IV ×2 (05:46→13:35)
[2024-06-08] MEDS: ketorolac 30 mg/mL INJ IVP ×2 (05:46→11:48)
[2024-06-08 06:06] LABS: Glucose Point of Care 220 mg/dL (70-110)
[2024-06-08] MEDS: gabapentin 300 mg Capsule PO ×3 (08:21→20:02)
[2024-06-08] MEDS: docusate sodium 100 mg Capsule PO ×2 (08:21→17:14)
[2024-06-08] MEDS: metformin 500 mg Tablet PO ×2 (08:21→17:14)
[2024-06-08] MEDS: baclofen 10 mg Tablet PO ×3 (08:21→20:02)
[2024-06-08] MEDS: cloNIDine 0.1 mg Tablet PO ×2 (08:21→17:14)
[2024-06-08] MEDS: fluoxetine 20 mg Capsule 80 MG PO (08:21)
--- NOTE | 2024-06-08 08:23 | P.PN_ITS ---
Subjective 2 Subjective: Patient doing well having some pain from incision otherwise doing well waiting to negative blood cultures so get her PICC line placed tomorrow. Still awaiting cultures. Vitals/I&O/Wt Last Vital Signs Temp 98.0 F 06/08/24 07:20 Pulse 97 06/08/24 07:20 Resp 17 06/08/24 07:20 BP 125/81 06/08/24 08:21 Pulse Ox 92 06/08/24 07:20 O2 Del Method Room Air 06/08/24 07:20 O2 Flow Rate 2 06/07/24 14:09 06/07/24 06/08/24 06/08/24 22:59 06:59 14:59 Intake Total 730 / 937.0 1498.5 / 2435.5 Output Total 50 / 60 Balance 730 / 927.0 1448.5 / 2375.5 Weight last 48 hrs Weight 175 lb 12.8 oz Weight 175 lb Physical Exam 2 Narrative: Patient resting comfortably in bed. Data 06/07/24 19:26 06/07/24 17:13 Micro: Microbiology 06/07/24 12:13 Gram Stain - Final Back 06/07/24 17:04 Blood Culture - Preliminary Blood SPECIMEN COLLECTED 06/07/24 17:13 Blood Culture - Preliminary Blood SPECIMEN COLLECTED A&P Assessment and plan (1) Status post lumbar spinal fusion: Patient is postop day 1 irrigation debridement of wound. Will pull the Hemovac drain Up with physical therapy Attestations 2 Medical Necessity Statement*: PICC line placement Coding Level of Care Code Acute Code for Chg Fwd Diagnoses Status post lumbar spinal fusion Z98.1
[2024-06-08] MEDS: insulin glargine 100 units/1 mL 20 UNIT SUBCUT (09:14)
[2024-06-08 10:44] LABS: Basophils % 0.5 %; Eosinophils % 0.7 %; Hematocrit 29.4 % (36-47); Lymphocytes # 1.4 10^3/uL (0.8-4.8); Mean Corpuscular Hemoglobin 25.4 pg (27-33); Mean Corpuscular Volume 82.1 fl (85-98); Mean Platelet Volume 10.3 fL (7.4-10.4); Monocytes # 0.4 10^3/uL (0.2-0.9); Neutrophils # 2.59 10^3/uL (1.8-7.7); Neutrophils % 58.6 %; Nucleated Red Blood Cells % 0 %; Platelet Count 191 10^3/cmm (157-399); Red Blood Count 3.58 10^6/uL (3.85-5.65); Red Cell Distribution Width 14.8 % (12.1-15.1); White Blood Count 4.42 10^3/uL (3.29-11.43)
[2024-06-08 10:47] LABS: Glucose Point of Care 260 mg/dL (70-110)
[2024-06-08] MEDS: cefTRIAXone 1,000 mg SDV 1000 MG IVP (12:28)
--- NOTE | 2024-06-08 14:52 | P.PN_ITS ---
Subjective 2 Subjective: Infectious disease progress note Overnight patient's hemoglobin was reported at 6.6, however it appears this was clotted. Platelets on that were also 151. Repeated hemoglobin this morning is at 9.1. HbA1c at 6.3. Cultures from the OR are still pending. Blood culture thus far negative. Medications: Reviewed: Yes Vitals/I&O/Wt Last Vital Signs Temp 98.3 F 06/08/24 11:18 Pulse 90 06/08/24 11:18 Resp 18 06/08/24 13:35 BP 127/84 06/08/24 11:18 Pulse Ox 96 06/08/24 11:18 O2 Del Method Room Air 06/08/24 11:18 O2 Flow Rate 2 06/07/24 14:09 06/07/24 06/08/24 06/08/24 22:59 06:59 14:59 Intake Total 730 / 937.0 1498.5 / 2435.5 360 / 360 Output Total 50 / 60 Balance 730 / 927.0 1448.5 / 2375.5 360 / 360 Weight last 48 hrs Weight 79.742 kg Weight 79.379 kg Physical Exam 2 Narrative: General: No acute distress, AO x3 HEENT: PERRLA, pupils bilaterally equal and reactive, pallors not present Chest: Normal vesicular breath sounds, no added sounds, equal good air entry bilaterally CVS: S1-S2 regular, no murmurs, no tachycardia, no gallops, no rubs Abdomen: Soft, nontender, no organomegaly, bowel sounds present Neuro: No focal deficits, no facial deformity, AO x3, power 5/5 in all limbs Data 06/08/24 10:34 06/07/24 17:13 Micro: Microbiology 06/07/24 12:13 Gram Stain - Final Back Anaerobic Culture - Preliminary Abscess Culture - Preliminary 06/07/24 17:04 Blood Culture - Preliminary Blood SPECIMEN COLLECTED 06/07/24 17:13 Blood Culture - Preliminary Blood SPECIMEN COLLECTED A&P Assessment and plan (1) Hardware complicating wound infection: 43-year-old lady recently having undergone posterior spinal fusion as noted above in March 2024, thereafter course complicated by wound dehiscence and infection. It appears during the past month she has had some draining wounds over the right elbow and her left knee which currently have scabbed over and are not showing any signs of active infection. She had been on clindamycin until a few days ago as prescribed by primary care physician. Today she underwent I&D of the back. Intraoperatively encountered to have a deep extending abscess. Cultures taken from the operating room, currently pending at this time. 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 High probability of MRSA infection currently Check blood cultures given recent history of multiple wounds, baseline CBC CMP CPK ESR and CRP. Hold off on placing PICC line until blood cultures negative for at least 48 hours. Patient will likely require extended course of antibiotics for the next 6 to 8 weeks. For now we will continue vancomycin with goal trough of 15-20 while patient is in the hospital. Discharge antibiotics to be decided based on cultures from the OR. will follow (2) Wound dehiscence: Plan June 08, 2024 OR cultures are currently pending. Given history of recurrent MRSA infections, anticipate culprit organism may be MRSA. Blood culture thus far without growth. Elevated CRP at 78.7. ESR at 11. Pending blood and OR cultures to decide final antibiotics. Anticipate discharge at least with daptomycin 8 mg/kg every 24 hours over the next 6 weeks due to concern for hardware infection. Start empiric ceftriaxone 1 g IV every 24 hours today while pending cultures. Patient states that she would like to use her own insulin sliding scale while in the hospital, this has been dose adjusted for her home insulin sliding scale. Blood sugar running up to 300, however patient states that she is extremely sensitive to his insulin and suffers from hypoglycemia with higher insulin doses. Her HbA1c is under good control at 6.3. Hemoglobin reported at 6.6 last evening, repeated this morning at 9.2. Anticipate that hemoglobin from last night being in error, likely related to clotted blood. Okay for PICC line to be placed tomorrow. Patient initially wished to go to SNF to complete her antibiotics as she did not think her family members would be able to help her, however unwilling to give up her Social Security check, she will be discharging home with arrangements for IV antibiotics to be delivered at home. Home health being arranged. Attestations 2 Medical Necessity Statement*: Per admitting Coding Level of Care Code Acute Code for Chg Fwd Diagnoses Hardware complicating wound infection T84.7XXA Wound dehiscence T81.30XA
[2024-06-08 16:16] LABS: Glucose Point of Care 323 mg/dL (70-110)
[2024-06-08] MEDS: insulin lispro 100 unit/1 mL SUBCUT ×2 (17:13→21:59)
[2024-06-08 20:51] LABS: Glucose Point of Care 215 mg/dL (70-110)
[2024-06-08 21:49] LABS: Vancomycin Trough 24.3 ug/mL (10-15)
[2024-06-09] VITALS (21 sets, daily range): BP systolic 119–137; BP diastolic 73–93; PULSE 79–106; RESP 16–20; TEMP 36.3–36.8; O2SAT 94–100
[2024-06-09] MEDS: guaiFENesin-dextromethorphan UDC 10 mL PO ×3 (01:04→17:12)
[2024-06-09] MEDS: oxyCODONE-APAP 10-325 mg Tablet PO ×5 (02:00→20:23)
[2024-06-09 03:01] LABS: Hematocrit 30.6 % (36-47)
[2024-06-09 03:13] LABS: Covid PCR NEGATIVE (Negative); Influenza A NEGATIVE (Negative); Influenza B NEGATIVE (Negative); Respiratory Syncytial Virus Ce NEGATIVE (Negative)
[2024-06-09] MEDS: VANCOMYCIN ADD-Vantage 1,000 MG in 0.9% NaCl ADD-Vantage 250 ML 250 MG IV (04:04)
[2024-06-09 06:50] LABS: Glucose Point of Care 170 mg/dL (70-110)
[2024-06-09] MEDS: insulin glargine 100 units/1 mL 20 UNIT SUBCUT (07:38)
[2024-06-09] MEDS: morphine 4 mg/mL SDV 1 mL 2 MG IVP ×5 (07:38→21:11)
[2024-06-09] MEDS: magnesium hydroxide 30 mL UDC PO (07:38)
[2024-06-09 07:49] LABS: Albumin Level 3.3 g/dL (3.5-5.2); Anion Gap 12.6 (5-19); Blood Urea Nitrogen 11 mg/dL (6-20); Calcium 8.3 mg/dL (8.5-10.5); Carbon Dioxide 29 mmol/L (22-29); Chloride 96 mmol/L (98-107); Creatinine Clr Calc Pharmacy 98.9498; Glomerular Filtration Rate 91.3 mL/min (90-130); Glucose 105 mg/dL (65-115); Phosphorus 2.1 mg/dL (2.5-4.5); Potassium 4.6 mmol/L (3.5-5.1); Sodium 133 mmol/L (136-145)
--- NOTE | 2024-06-09 08:27 | XR_ITS ---
WS: [id number] Portable AP semiupright chest, 06/09/2024 Clinical Data: Post PICC insertion Comparison: None. Findings: The right PICC line ends in the mid superior vena cava. No pneumothorax is seen. XR/XR chest 1V portable [id number] Impression: Satisfactory placement of right PICC line.
[2024-06-09] MEDS: cloNIDine 0.1 mg Tablet PO ×2 (09:40→17:12)
[2024-06-09] MEDS: docusate sodium 100 mg Capsule PO ×2 (09:41→17:12)
[2024-06-09] MEDS: baclofen 10 mg Tablet PO ×3 (09:41→20:24)
[2024-06-09] MEDS: fluoxetine 20 mg Capsule 80 MG PO (09:41)
[2024-06-09] MEDS: gabapentin 300 mg Capsule PO ×3 (09:41→20:24)
[2024-06-09] MEDS: metformin 500 mg Tablet PO ×2 (09:41→17:12)
--- NOTE | 2024-06-09 09:56 | PICC.NOTE ---
Single lumen PICC placed to right basilic vein. Referred to vascular access nurse for PICC placement due to need for IV antibiotics x 6 weeks. Risks and benefits discussed and informed consent obtained from pt. Right arm assessed with right basilic vein measuring 5.0 mm, straight, and apparent best choice for placement. Using sterile technique and MST, right basilic vein accessed x 1 stick. Mid-arm circumference measured 10 cm from right AC 29.5 cm. Trimmed cath 40 cm with 0 cm external length noted. CXR shows tip in SVC, in good position for use per radiologist. Line secured with stat-lock. Insertion site covered with Biopatch and TSM. Report given to bedside nurse, SHEMAR Foster.
[2024-06-09 11:21] LABS: Glucose Point of Care 160 mg/dL (70-110)
[2024-06-09] MEDS: cefTRIAXone 1,000 mg SDV 1000 MG IVP (11:53)
[2024-06-09] MEDS: DAPTOmycin 500 MG SDV 640 MG IVP (12:51)
--- NOTE | 2024-06-09 13:19 | PM.DCS ---
Discharge Providers Date of Admission: 06/07/24 14:16 Date of Discharge: June 09, 2024 Attending Provider at Admission: Anupam Garcia DO Attending Provider at Discharge: Anupam Garcia DO Primary Care Provider: BRAD DE MD Diagnoses at Discharge Discharge Diagnosis (1) Hardware complicating wound infection: Status: Acute (2) Wound dehiscence: Status: Acute Reason for Visit Reason for Visit: T81.49XA Physical Exam Narrative: Pain control seems better in once. Doing well. Discharge Data Studies Completed and Pending Completed Studies During Hospitalization Category Date Time Status CXRP [XR chest 1V portable [id number]] Routine Exams 06/09/24 08:27 Completed XR thoracic spine 2V [id number] Routine Exams 06/07/24 12:26 Completed Pending at discharge Category Date Time Status Abscess Culture and Gram Stain Routine Lab 06/07/24 12:13 Results Anaerobic Culture Routine Lab 06/07/24 12:13 Results Blood Culture Stat Lab 06/07/24 17:04 Results Respiratory Panel 2 Stat Lab 06/09/24 12:04 Received Radiology Impressions Thoracic Spine X-Ray 06/07/24 12:26 Impression: Catheter placement. Chest X-Ray 06/09/24 08:27 Impression: Satisfactory placement of right PICC line. Laboratory Results WBC 4.42 10^3/uL (3.29-11.43) 06/08/24 10:34 Corrected WBC Cancelled 06/07/24 17:13 RBC 3.58 10^6/uL (3.85-5.65) L 06/08/24 10:34 Hgb 9.20 g/dL (11.27-16.99) L 06/09/24 02:27 Hct 30.6 % (36-47) L 06/09/24 02:27 MCV 82.1 fl (85-98) L 06/08/24 10:34 MCH 25.4 pg (27-33) L 06/08/24 10:34 MCHC 31.0 g/dL (30-55) D 06/08/24 10:34 RDW 14.8 % (12.1-15.1) 06/08/24 10:34 Plt Count 191 10^3/cmm (157-399) 06/08/24 10:34 MPV 10.3 fL (7.4-10.4) 06/08/24 10:34 Gran % Cancelled 06/07/24 17:13 Neut % (Auto) 58.6 % 06/08/24 10:34 Lymph % (Auto) 31.0 % 06/08/24 10:34 [place] % (Auto) 9.0 % 06/08/24 10:34 Eos % (Auto) 0.7 % 06/08/24 10:34 Baso % (Auto) 0.5 % 06/08/24 10:34 Neut # (Auto) 2.59 10^3/uL (1.8-7.7) 06/08/24 10:34 Lymph # (Auto) 1.4 10^3/uL (0.8-4.8) 06/08/24 10:34 [place] # (Auto) 0.4 10^3/uL (0.2-0.9) 06/08/24 10:34 Eos # (Auto) 0.0 10^3/uL (0.0-0.8) 06/08/24 10:34 Baso # (Auto) 0.0 10^3/uL (0.0-0.1) 06/08/24 10:34 Absolute Gran (auto) Cancelled 06/07/24 17:13 Nucleated RBC % (auto) 0 % 06/08/24 10:34 Nucleated RBCs # 0.0 /100WBC 06/08/24 10:34 ESR 11 mm/hr (0-15) 06/07/24 19:26 Sodium 133 mmol/L (136-145) L 06/09/24 02:27 Potassium 4.6 mmol/L (3.5-5.1) 06/09/24 02:27 Chloride 96 mmol/L (98-107) L 06/09/24 02:27 Carbon Dioxide 29 mmol/L (22-29) 06/09/24 02:27 Anion Gap 12.6 (5-19) 06/09/24 02:27 BUN 11 mg/dL (6-20) 06/09/24 02:27 Creatinine 0.7 mg/dL (0.5-0.9) 06/09/24 02:27 GFR Calculation 91.3 mL/min (90-130) 06/09/24 02:27 Glucose 105 mg/dL (65-115) 06/09/24 02:27 POC Glucose 160 mg/dL (70-110) H 06/09/24 10:34 Estimat Average Glucose 134 06/07/24 19:26 Hemoglobin A1c 6.3 % (4.0-6.0) H 06/07/24 19:26 Calculated Osmolality 283 mOsm/kg (285-295) L 06/07/24 17:13 Calcium 8.3 mg/dL (8.5-10.5) L 06/09/24 02:27 Phosphorus 2.1 mg/dL (2.5-4.5) L 06/09/24 02:27 Total Bilirubin 0.2 mg/dL (0.15-1.2) 06/07/24 17:13 AST 9 U/L (0-32) 06/07/24 17:13 ALT 8 U/L (0-33) 06/07/24 17:13 Alkaline Phosphatase 109 U/L (35-105) H 06/07/24 17:13 Creatine Kinase 33 U/L (26-192) 06/07/24 17:13 C-Reactive Protein 78.7 mg/L (0.0-4.9) H 06/07/24 17:13 Total Protein 7.0 g/dL (6.6-8.7) 06/07/24 17:13 Albumin 3.3 g/dL (3.5-5.2) L 06/09/24 02:27 Globulin 3.8 g/dL (1.3-4.6) 06/07/24 17:13 Vancomycin Trough 24.3 ug/mL (10-15) H 06/08/24 21:19 Coronavirus (PCR) Negative (Negative) 06/09/24 02:30 Influenza A (PCR) Negative (Negative) 06/09/24 02:30 Influenza Type B (PCR) Negative (Negative) 06/09/24 02:30 RSV (PCR) Negative (Negative) 06/09/24 02:30 Blood Type A Positive 06/08/24 10:34 Rho(D) Type Rh positive 06/08/24 10:34 Antibody Screen Negative 06/08/24 10:34 Crossmatch See Detail 06/08/24 10:34 Vitals Last Vital Signs Temp 98.1 F 06/09/24 12:00 Pulse 90 06/09/24 12:00 Resp 16 06/09/24 12:00 BP 119/73 06/09/24 12:00 Pulse Ox 97 06/09/24 12:00 O2 Del Method Room Air 06/09/24 12:00 O2 Flow Rate 2 06/07/24 14:09 Discharge Plan Discharge Patient Disposition: Home Condition: Stable Prescriptions: New oxycodone 10 mg tablet 10 mg PO Q4H PRN (Reason: pain) 7 Days Qty: 42 0RF Continued gabapentin 300 mg capsule 300 mg PO TID metformin 500 mg Tablet 500 mg PO BID insulin glargine [Lantus Solostar U-100 Insulin] 100 unit/mL (3 mL) Insulin Pen 20 unit SUBCUT QAM Trulicity 0.75 mg/0.5 mL Pen Injector 0.75 mg SUBCUT .WEEKLY insulin lispro 100 unit/mL Insulin Pen 1 unit SUBCUT TID Rx Instructions: greater than 150 takes 1 unit per sliding scale fluoxetine [Prozac] 40 mg Capsule 80 mg PO DAILY clonidine HCl 0.1 mg Tablet 0.1 mg PO BID baclofen 10 mg Tablet 10 mg PO TID diclofenac sodium 75 mg Tablet,Delayed Release (Dr/Ec) 75 mg PO BID Discontinued oxycodone 5 mg capsule 5 mg PO TID PRN (Reason: pain) 10 Days Qty: 30 0RF Discharge Orders: Discharge Order (Routine); Ordered 06/09/24 Ordered By: Anupam Garcia Discharge Diet: Advance as tolerated Discharge Activity: Limit activity as instructed Patient Instructions: Acute Wound Care (DC), Opioid Safety, Post Anesthesia Care Activity Restrictions/Additional Instructions: Thank you for [facility] for your care! The following is a list of instructions, from your provider, to follow upon your discharge to ensure you have the optimal recovery from your recent injury orsurgery. Follow-up care is a dailey part of your treatment and safety. Be sure to make and go to all appointments, and call your doctor if you are having problems. If you do not already have a follow-up appointment made, call Dr. Garcia office in the next 1-3 days to make follow up appointment for 2 weeks at [phone]. It is also a good idea to know your test results and keep a list of the medicines you take. Medications will be prescribed for you at your provider's discretion. These medications are to be used as instructed; if they are taken more often that prescribed they will not be refilled early and in most cases will not be refilled at all. > When a refill is needed,you should contact daniela van 2-3 business days before your prescription runs out. Medications will NOT be refilled by [facility] director providers after hours! > Many pain medications contain Tylenol (Acetaminophen). Do not consume more than 4,000 mg of Tylenol per day in total with any combination ofmedications. > Pain medications can cause constipation. Please use an over the counter stool softener as directed, while taking pain medications. Consulty our local pharmacist with questions or recommendations on stool softeners. If constipation persists, contact our office or your primary care provider. > While under our care,you are not to receive pain medications or other controlled substances from any other provider unless our office is notified and approves. Any attempts to do so will result in refusal to prescribe any further pain medications and possible dismissal from our practice. ? Your wound and/or dressing should remain clean and dry for 2 days after surgery. On postoperative day 2 (48 hours after your surgery) the dressing (if present) should be removed and it is okay to shower and get the incision wet. Pad dry afterwards. No further dressing should be required from that point on. Do not put any creams or ointments on theincision > It is normal for there to be a small amount of discharge (bloody or blood tinged) present from a surgical wound for the first 1-3days. > The wound should be examined twice a day for signs of infection. Mild redness or bruising is to be expected but indications that an infection maybe starting would include; An increase in redness, swelling, or discharge, a foul odor present around the incision, and/or a fever greater than 101 ?F ? Showering is permitted, however we ask that you do not take a bath, sit in a whirlpool / Jacuzzi, or go swimming for 1 month. For only the first 2 days after surgery, lt wilt be necessary for you to cover your wound/dressing with plastic and tape to keep it dry. ? Walking is essential for the healing process after surgery. We would like you to slowly advance your walking. This should be done on relatively flat clear ground (inside or out) or can be done on a treadmill. Remember this goal does not have to happen all at once, slowly increase your distance and duration. This can be broken into more more than one walk per day as tolerated. Patients who walk as directed after surgery rarely require Physical Therapy. In the unlikely event this issue arises your provider will direct hospital staff to make the appropriate arrangements. ? No lifting over 5 pounds {a gallon of milk) or bending/twisting until further notice. Each of these activities places an unnecessary amount of stress onto the body and can impede the delicate healing process. > Instead of bending at the waist, keep your back straight and bend at the knees. > Instead of twisting your torso, keep your back straight and turn your entire body with your feet. ? You may sleep in any position which makes you comfortable. Many patients find comfort sleeping in a reclining chair. It is not abnormal to have difficulty sleeping for the first several weeks following your surgery. We recommend trying Benadry! or Tylenol PM as directed to help with your sleeping difficulties. Both medications are over the counter and available withoutprescription. ? NO SMOKING!!! Smoking dramatically increases the probability of developing postoperative wound infections. ? Common complaints after lumbar and/or thoracic spine surgery include, but are not limited to: numbness and/or tingling in the legs, pain around the incision and surrounding tissues, muscle spasms, or stiffness of the middle to low back. Contact our office if these symptoms persist or if an acute change occurs. ? No driving for the first 3-5days, and not while taking narcotics until seen at your follow-up appointment and cleared. There are no restrictions for riding on short trips, however if you take a longer trip, arrangements should be made to make regular stops to get out of the vehicle and stretch . ? Swelling is an unfortunate event that will take place with any surgery and is the primary source of your postoperative discomfort. While walking and regular approved activities helps control inflammation, there are additional steps you can take to minimizeswelling. > Place ice over the surgical site and surrounding tissue for twenty minutes, followed by applying a low/medium heat (heating pad) for an additional twenty minutes every 1-2 hours as needed for painrelief. > You may use of over the counter anti-inflammatory medications (Ibuprofen, Motrin, Aleve, Advil, etc) as directed on the package label. These types of medicines wm significantly reduce the amount of discomfort you experience after surgery from swelling. It should be noted that if you have and allergy to any of these medications, or a history of ulcers or kidney disease you should consult you primary care provider prior to starting these medications. Discharge Attestations Time Spent in Discharge Care*: less than 30 min Quality Metrics Clinical Quality Measures [ No reported AMI, CVA or VTE this stay] Coding Level of Care Code Acute Code for Chg Fwd Diagnoses Hardware complicating wound infection T84.7XXA Wound dehiscence T81.30XA
--- NOTE | 2024-06-09 13:49 | PC.RESP ---
Pt not given nebulizer preop D/T no call for medication delivery.
[2024-06-09 14:01] LABS: Adenovirus Not Detected (NOT DETECT); Chlamydia Pneumoniae Not Detected (NOT DETECT); Coronavirus 229E,HKU1,NL63,OC4 Detected (NOT DETECT); Human Metapneumovirus Not Detected (NOT DETECT); Human Rhinovirus/Enterovirus Not Detected (NOT DETECT); Influenza A Not Detected (NOT DETECT); Influenza A H1 Not Detected (NOT DETECT); Influenza A H1-2009 Not Detected (NOT DETECT); Influenza A H3 Not Detected (NOT DETECT); Influenza B Not Detected (NOT DETECT); Mycoplasma Pneumoniae Not Detected (NOT DETECT); Parainfluenza Virus Type 1 Not Detected (NOT DETECT); Parainfluenza Virus Type 2 Not Detected (NOT DETECT); Parainfluenza Virus Type 3 Not Detected (NOT DETECT); Parainfluenza Virus Type 4 Not Detected (NOT DETECT); Respiratory Syncytial Virus A Not Detected (NOT DETECT); Respiratory Syncytial Virus B Not Detected (NOT DETECT); SARS-COV-2 Not Detected (NOT DETECT)
[2024-06-09 16:57] LABS: Glucose Point of Care 110 mg/dL (70-110)
[2024-06-09] MEDS: fluticasone nasal spray 16gm Btl 1 SPRAY NASAL (17:13)
--- NOTE | 2024-06-09 17:42 | P.PN_ITS ---
Subjective 2 Subjective: Patient complaining of upper respiratory tract symptoms today. She has rhinorrhea, runny nose. States that she is having a harder time breathing. Reports a remote history of asthma as a child. Medications: Reviewed: Yes Vitals/I&O/Wt Last Vital Signs Temp 98.1 F 06/09/24 16:00 Pulse 92 06/09/24 16:00 Resp 17 06/09/24 16:15 BP 129/82 06/09/24 17:12 Pulse Ox 94 06/09/24 16:00 O2 Del Method Room Air 06/09/24 16:00 O2 Flow Rate 2 06/07/24 14:09 06/09/24 06/09/24 06/09/24 06:59 14:59 22:59 Intake Total 1210 / 3420 360 / 360 Balance 1210 / 3420 360 / 360 Weight last 48 hrs Weight 79.515 kg Weight 79.742 kg Physical Exam 2 Narrative: General: No acute distress, AO x3 HEENT: PERRLA, pupils bilaterally equal and reactive, pallors not present Chest: Normal vesicular breath sounds, no added sounds, equal good air entry bilaterally CVS: S1-S2 regular, no murmurs, no tachycardia, no gallops, no rubs Abdomen: Soft, nontender, no organomegaly, bowel sounds present Neuro: No focal deficits, no facial deformity, AO x3, power 5/5 in all limbs Data 06/09/24 02:27 06/09/24 02:27 Micro: Microbiology 06/07/24 12:13 Gram Stain - Final Back Anaerobic Culture - Preliminary Abscess Culture - Preliminary Coag positive Staphylococcus 06/07/24 17:13 Blood Culture - Preliminary Blood NEGATIVE TO DATE 06/07/24 17:04 Blood Culture - Preliminary Blood NEGATIVE TO DATE A&P Assessment and plan (1) Hardware complicating wound infection: 43-year-old lady recently having undergone posterior spinal fusion as noted above in March 2024, thereafter course complicated by wound dehiscence and infection. It appears during the past month she has had some draining wounds over the right elbow and her left knee which currently have scabbed over and are not showing any signs of active infection. She had been on clindamycin until a few days ago as prescribed by primary care physician. Today she underwent I&D of the back. Intraoperatively encountered to have a deep extending abscess. Cultures taken from the operating room, currently pending at this time. 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 High probability of MRSA infection currently Check blood cultures given recent history of multiple wounds, baseline CBC CMP CPK ESR and CRP. Hold off on placing PICC line until blood cultures negative for at least 48 hours. Patient will likely require extended course of antibiotics for the next 6 to 8 weeks. For now we will continue vancomycin with goal trough of 15-20 while patient is in the hospital. Discharge antibiotics to be decided based on cultures from the OR. will follow (2) Wound dehiscence: Plan June 08, 2024 OR cultures are currently pending. Given history of recurrent MRSA infections, anticipate culprit organism may be MRSA. Blood culture thus far without growth. Elevated CRP at 78.7. ESR at 11. Pending blood and OR cultures to decide final antibiotics. Anticipate discharge at least with daptomycin 8 mg/kg every 24 hours over the next 6 weeks due to concern for hardware infection. Start empiric ceftriaxone 1 g IV every 24 hours today while pending cultures. Patient states that she would like to use her own insulin sliding scale while in the hospital, this has been dose adjusted for her home insulin sliding scale. Blood sugar running up to 300, however patient states that she is extremely sensitive to his insulin and suffers from hypoglycemia with higher insulin doses. Her HbA1c is under good control at 6.3. Hemoglobin reported at 6.6 last evening, repeated this morning at 9.2. Anticipate that hemoglobin from last night being in error, likely related to clotted blood. Okay for PICC line to be placed tomorrow. Patient initially wished to go to SNF to complete her antibiotics as she did not think her family members would be able to help her, however unwilling to give up her Social Security check, she will be discharging home with arrangements for IV antibiotics to be delivered at home. Home health being arranged. June 09, 2024 OR cultures thus far reported with mixed superficial lorraine. Requested lab to workup specifically for Staph aureus. This evening identified coag positive Staphylococcus, most likely Staph aureus, possibly MRSA. Discontinue ceftriaxone Patient will be discharged today on daptomycin 8 mg/kg IV every 24 hours over the next 6 weeks until July 20, 2024. Weekly CBC creatinine LFT CPK and CRP ordered. Follow-up in infectious disease clinic on June 27, 2024. Patient has home health arranged to assist with home IV antibiotics. First dose of daptomycin to be administered inpatient Blood cultures remain negative to date PICC line placed this morning to enable IV antibiotics over the next 6 weeks. Chest x-ray without any consolidation. Complaining of upper respiratory tract symptoms today. Respiratory viral panel was checked and resulted positive for coronavirus. Patient placed on contact and droplet precautions. Supportive treatment only. Does not need any specific antiviral treatment. Add albuterol inhalation as needed, patient reports a reported history of asthma. Albuterol inhaler additionally added at discharge. Attestations 2 Medical Necessity Statement*: Per admitting Coding Level of Care Code Acute Code for g Fwd Diagnoses Hardware complicating wound infection T84.7XXA Wound dehiscence T81.30XA
[2024-06-09] MEDS: albuterol 2.5 mg/3 mL Neb INHALATION ×3 (18:42→18:52)
[2024-06-09 20:24] LABS: Glucose Point of Care 379 mg/dL (70-110)
[2024-06-09] MEDS: insulin lispro 100 unit/1 mL SUBCUT (20:24)
[2024-06-09 21:19] LABS: Glucose Point of Care 299 mg/dL (70-110)
[2024-06-10] VITALS (15 sets, daily range): BP systolic 102–134; BP diastolic 64–80; PULSE 72–98; RESP 14–18; TEMP 36.4–36.8; O2SAT 92–99
[2024-06-10] MEDS: oxyCODONE-APAP 10-325 mg Tablet PO ×3 (00:59→10:22)
[2024-06-10 01:01] LABS: Glucose Point of Care 138 mg/dL (70-110)
[2024-06-10] MEDS: morphine 4 mg/mL SDV 1 mL 2 MG IVP ×2 (02:23→03:41)
[2024-06-10 06:36] LABS: Glucose Point of Care 95 mg/dL (70-110)
[2024-06-10] MEDS: baclofen 10 mg Tablet PO ×3 (08:27→20:03)
[2024-06-10] MEDS: gabapentin 300 mg Capsule PO ×3 (08:27→20:03)
[2024-06-10] MEDS: docusate sodium 100 mg Capsule PO ×2 (08:27→16:51)
[2024-06-10] MEDS: metformin 500 mg Tablet PO ×2 (08:28→16:51)
[2024-06-10] MEDS: cloNIDine 0.1 mg Tablet PO ×2 (08:28→16:51)
[2024-06-10] MEDS: fluoxetine 20 mg Capsule 80 MG PO (08:28)
[2024-06-10] MEDS: guaiFENesin-dextromethorphan UDC 10 mL PO ×2 (10:21→20:03)
[2024-06-10] MEDS: DAPTOmycin 500 MG SDV 640 MG IVP (10:23)
[2024-06-10 11:37] LABS: Glucose Point of Care 177 mg/dL (70-110)
[2024-06-10] MEDS: insulin lispro 100 unit/1 mL SUBCUT ×2 (11:59→21:11)
--- NOTE | 2024-06-10 14:17 | P.PN_ITS ---
Subjective 2 Subjective: patient's abx are not able to arranged until wednesday due to insurance issues - please see case management note. Staying here over the weekend to get daptomycin until there is confirmation of home delivery Medications: Reviewed: Yes Vitals/I&O/Wt Last Vital Signs Temp 97.6 F 06/10/24 12:00 Pulse 91 06/10/24 12:00 Resp 14 06/10/24 12:00 BP 114/76 06/10/24 12:00 Pulse Ox 95 06/10/24 12:00 O2 Del Method Room Air 06/10/24 12:00 O2 Flow Rate 2 06/07/24 14:09 06/09/24 06/10/24 06/10/24 22:59 06:59 14:59 Intake Total 1200 / 1560 360 / 360 Balance 1200 / 1560 360 / 360 Weight last 48 hrs Weight 90.9 kg Weight 79.515 kg Physical Exam 2 Narrative: General: No acute distress, AO x3 HEENT: PERRLA, pupils bilaterally equal and reactive, pallors not present Chest: Normal vesicular breath sounds, no added sounds, equal good air entry bilaterally CVS: S1-S2 regular, no murmurs, no tachycardia, no gallops, no rubs Abdomen: Soft, nontender, no organomegaly, bowel sounds present Neuro: No focal deficits, no facial deformity, AO x3, power 5/5 in all limbs Data 06/09/24 02:27 06/09/24 02:27 Micro: Microbiology 06/07/24 12:13 Gram Stain - Final Back Anaerobic Culture - Preliminary Abscess Culture - Preliminary Coag positive Staphylococcus A&P Assessment and plan (1) Hardware complicating wound infection: 43-year-old lady recently having undergone posterior spinal fusion as noted above in March 2024, thereafter course complicated by wound dehiscence and infection. It appears during the past month she has had some draining wounds over the right elbow and her left knee which currently have scabbed over and are not showing any signs of active infection. She had been on clindamycin until a few days ago as prescribed by primary care physician. Today she underwent I&D of the back. Intraoperatively encountered to have a deep extending abscess. Cultures taken from the operating room, currently pending at this time. 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 High probability of MRSA infection currently Check blood cultures given recent history of multiple wounds, baseline CBC CMP CPK ESR and CRP. Hold off on placing PICC line until blood cultures negative for at least 48 hours. Patient will likely require extended course of antibiotics for the next 6 to 8 weeks. For now we will continue vancomycin with goal trough of 15-20 while patient is in the hospital. Discharge antibiotics to be decided based on cultures from the OR. will follow (2) Wound dehiscence: Plan June 08, 2024 OR cultures are currently pending. Given history of recurrent MRSA infections, anticipate culprit organism may be MRSA. Blood culture thus far without growth. Elevated CRP at 78.7. ESR at 11. Pending blood and OR cultures to decide final antibiotics. Anticipate discharge at least with daptomycin 8 mg/kg every 24 hours over the next 6 weeks due to concern for hardware infection. Start empiric ceftriaxone 1 g IV every 24 hours today while pending cultures. Patient states that she would like to use her own insulin sliding scale while in the hospital, this has been dose adjusted for her home insulin sliding scale. Blood sugar running up to 300, however patient states that she is extremely sensitive to his insulin and suffers from hypoglycemia with higher insulin doses. Her HbA1c is under good control at 6.3. Hemoglobin reported at 6.6 last evening, repeated this morning at 9.2. Anticipate that hemoglobin from last night being in error, likely related to clotted blood. Okay for PICC line to be placed tomorrow. Patient initially wished to go to SNF to complete her antibiotics as she did not think her family members would be able to help her, however unwilling to give up her Social Security check, she will be discharging home with arrangements for IV antibiotics to be delivered at home. Home health being arranged. June 09, 2024 OR cultures thus far reported with mixed superficial lorraine. Requested lab to workup specifically for Staph aureus. This evening identified coag positive Staphylococcus, most likely Staph aureus, possibly MRSA. Discontinue ceftriaxone Patient will be discharged today on daptomycin 8 mg/kg IV every 24 hours over the next 6 weeks until July 20, 2024. Weekly CBC creatinine LFT CPK and CRP ordered. Follow-up in infectious disease clinic on June 27, 2024. Patient has home health arranged to assist with home IV antibiotics. First dose of daptomycin to be administered inpatient Blood cultures remain negative to date PICC line placed this morning to enable IV antibiotics over the next 6 weeks. Chest x-ray without any consolidation. Complaining of upper respiratory tract symptoms today. Respiratory viral panel was checked and resulted positive for coronavirus. Patient placed on contact and droplet precautions. Supportive treatment only. Does not need any specific antiviral treatment. Add albuterol inhalation as needed, patient reports a reported history of asthma. Albuterol inhaler additionally added at discharge. June 10, 2024: No respiratory complaints. On daptomycin currently. Couldn't discharge yesterday due to issues related to insurance and abx delivery- status update/ confirmation not available until Wednesday. Stable for discharge from ID standpoint when abx delivery confirmed. Attestations 2 Medical Necessity Statement*: per admitting Coding Level of Care Code Acute Code for Chg Fwd Diagnoses Hardware complicating wound infection T84.7XXA Wound dehiscence T81.30XA
[2024-06-10] MEDS: oxyCODONE 5 mg IR Tab/Cap 10 MG PO ×3 (14:44→23:26)
[2024-06-10] MEDS: nicotine 14 mg Patch 1 PATCH TRANSDERMA (14:45)
[2024-06-10] MEDS: fluticasone nasal spray 16gm Btl 1 SPRAY NASAL (16:52)
[2024-06-10 16:56] LABS: Glucose Point of Care 97 mg/dL (70-110)
[2024-06-10] MEDS: lanolin oint 7 gm 1 APPLIC TOPICAL (20:03)
[2024-06-10] MEDS: magnesium hydroxide 30 mL UDC PO (20:03)
[2024-06-10] MEDS: acetaminophen 325 mg Tablet 650 MG PO (20:06)
[2024-06-10 20:45] LABS: Glucose Point of Care 201 mg/dL (70-110)
[2024-06-11] VITALS (14 sets, daily range): BP systolic 95–136; BP diastolic 54–80; PULSE 91–104; RESP 16–18; TEMP 36.7–37.6; O2SAT 90–97
[2024-06-11] MEDS: HYDROmorphone 1 mg/mL INJ 1 mL IVP (00:31)
[2024-06-11] MEDS: oxyCODONE 5 mg IR Tab/Cap 10 MG PO ×3 (03:28→18:36)
[2024-06-11 06:28] LABS: Glucose Point of Care 141 mg/dL (70-110)
[2024-06-11] MEDS: guaiFENesin-dextromethorphan UDC 10 mL PO ×2 (06:30→19:50)
[2024-06-11] MEDS: docusate sodium 100 mg Capsule PO ×2 (08:33→18:36)
[2024-06-11] MEDS: cloNIDine 0.1 mg Tablet PO (08:33)
[2024-06-11] MEDS: baclofen 10 mg Tablet PO ×3 (08:33→20:38)
[2024-06-11] MEDS: metformin 500 mg Tablet PO ×2 (08:33→18:36)
[2024-06-11] MEDS: fluoxetine 20 mg Capsule 80 MG PO (08:33)
[2024-06-11] MEDS: gabapentin 300 mg Capsule PO ×3 (08:33→20:38)
[2024-06-11] MEDS: morphine IR 15 mg Tablet PO ×3 (08:34→20:38)
[2024-06-11] MEDS: acetaminophen 325 mg Tablet 650 MG PO ×2 (08:34→23:10)
[2024-06-11] MEDS: nicotine 14 mg Patch 1 PATCH TRANSDERMA (08:34)
[2024-06-11] MEDS: insulin glargine 100 units/1 mL 20 UNIT SUBCUT (08:40)
[2024-06-11 10:59] LABS: Glucose Point of Care 191 mg/dL (70-110)
[2024-06-11] MEDS: DAPTOmycin 500 MG SDV 640 MG IVP (11:50)
[2024-06-11] MEDS: insulin lispro 100 unit/1 mL SUBCUT ×2 (11:50→18:38)
--- NOTE | 2024-06-11 12:26 | P.PN_ITS ---
Subjective 2 Subjective: Patient was complaining of pain with the hospitalist give her morphine last night she said that this helped with the pain. Will continue with. Vitals/I&O/Wt Last Vital Signs Temp 98.1 F 06/11/24 12:00 Pulse 91 06/11/24 12:00 Resp 16 06/11/24 12:00 BP 131/74 06/11/24 12:00 Pulse Ox 96 06/11/24 12:00 O2 Del Method Room Air 06/11/24 12:00 O2 Flow Rate 2 06/07/24 14:09 06/10/24 06/11/24 06/11/24 22:59 06:59 14:59 Intake Total 500 / 980 500 / 1480 120 / 120 Balance 500 / 980 500 / 1480 120 / 120 Weight last 48 hrs Weight 192 lb 12.8 oz Weight 200 lb 6.4 oz Physical Exam 2 Narrative: Dressings clean dry and intact patient sitting up in bed Data 06/09/24 02:27 06/09/24 02:27 Micro: Microbiology 06/07/24 12:13 Gram Stain - Final Back Anaerobic Culture - Preliminary Abscess Culture - Preliminary Coag positive Staphylococcus A&P Assessment and plan (1) Hardware complicating wound infection: Patient is status post I&D of wound. Patient is awaiting discharge for insurance to get her antibiotics set up. Qualifiers: Encounter type: subsequent encounter Qualified Code(s): T84.7XXD - Infection and inflammatory reaction due to other internal orthopedic prosthetic devices, implants and grafts, subsequent encounter Attestations 2 Medical Necessity Statement*: Antibiotic set up with insurance/pain control Coding Level of Care Code Acute Code for Chg Fwd Diagnoses Hardware complicating wound infection, subsequent encounter T84.7XXD Encounter type: subsequent encounter
--- NOTE | 2024-06-11 15:35 | P.PN_ITS ---
Subjective 2 Subjective: no acute interim events, awaiting abx delivery confirmation Medications: Reviewed: Yes Vitals/I&O/Wt Last Vital Signs Temp 98.1 F 06/11/24 12:00 Pulse 91 06/11/24 12:00 Resp 16 06/11/24 14:58 BP 131/74 06/11/24 12:00 Pulse Ox 96 06/11/24 14:58 O2 Del Method Room Air 06/11/24 12:00 O2 Flow Rate 2 06/07/24 14:09 06/11/24 06/11/24 06/11/24 06:59 14:59 22:59 Intake Total 500 / 1480 480 / 480 Balance 500 / 1480 480 / 480 Weight last 48 hrs Weight 87.453 kg Weight 90.9 kg Physical Exam 2 Narrative: General: No acute distress, AO x3 HEENT: PERRLA, pupils bilaterally equal and reactive, pallors not present Chest: Normal vesicular breath sounds, no added sounds, equal good air entry bilaterally CVS: S1-S2 regular, no murmurs, no tachycardia, no gallops, no rubs Abdomen: Soft, nontender, no organomegaly, bowel sounds present Neuro: No focal deficits, no facial deformity, AO x3, power 5/5 in all limbs Data 06/09/24 02:27 06/09/24 02:27 Micro: Microbiology 06/07/24 12:13 Gram Stain - Final Back Anaerobic Culture - Preliminary Abscess Culture - Preliminary Coag positive Staphylococcus A&P Assessment and plan (1) Hardware complicating wound infection: 43-year-old lady recently having undergone posterior spinal fusion as noted above in March 2024, thereafter course complicated by wound dehiscence and infection. It appears during the past month she has had some draining wounds over the right elbow and her left knee which currently have scabbed over and are not showing any signs of active infection. She had been on clindamycin until a few days ago as prescribed by primary care physician. Today she underwent I&D of the back. Intraoperatively encountered to have a deep extending abscess. Cultures taken from the operating room, currently pending at this time. 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 High probability of MRSA infection currently Check blood cultures given recent history of multiple wounds, baseline CBC CMP CPK ESR and CRP. Hold off on placing PICC line until blood cultures negative for at least 48 hours. Patient will likely require extended course of antibiotics for the next 6 to 8 weeks. For now we will continue vancomycin with goal trough of 15-20 while patient is in the hospital. Discharge antibiotics to be decided based on cultures from the OR. will follow Qualifiers: Encounter type: subsequent encounter Qualified Code(s): T84.7XXD - Infection and inflammatory reaction due to other internal orthopedic prosthetic devices, implants and grafts, subsequent encounter (2) Wound dehiscence: Plan June 08, 2024 OR cultures are currently pending. Given history of recurrent MRSA infections, anticipate culprit organism may be MRSA. Blood culture thus far without growth. Elevated CRP at 78.7. ESR at 11. Pending blood and OR cultures to decide final antibiotics. Anticipate discharge at least with daptomycin 8 mg/kg every 24 hours over the next 6 weeks due to concern for hardware infection. Start empiric ceftriaxone 1 g IV every 24 hours today while pending cultures. Patient states that she would like to use her own insulin sliding scale while in the hospital, this has been dose adjusted for her home insulin sliding scale. Blood sugar running up to 300, however patient states that she is extremely sensitive to his insulin and suffers from hypoglycemia with higher insulin doses. Her HbA1c is under good control at 6.3. Hemoglobin reported at 6.6 last evening, repeated this morning at 9.2. Anticipate that hemoglobin from last night being in error, likely related to clotted blood. Okay for PICC line to be placed tomorrow. Patient initially wished to go to SNF to complete her antibiotics as she did not think her family members would be able to help her, however unwilling to give up her Social Security check, she will be discharging home with arrangements for IV antibiotics to be delivered at home. Home health being arranged. June 09, 2024 OR cultures thus far reported with mixed superficial lorraine. Requested lab to workup specifically for Staph aureus. This evening identified coag positive Staphylococcus, most likely Staph aureus, possibly MRSA. Discontinue ceftriaxone Patient will be discharged today on daptomycin 8 mg/kg IV every 24 hours over the next 6 weeks until July 20, 2024. Weekly CBC creatinine LFT CPK and CRP ordered. Follow-up in infectious disease clinic on June 27, 2024. Patient has home health arranged to assist with home IV antibiotics. First dose of daptomycin to be administered inpatient Blood cultures remain negative to date PICC line placed this morning to enable IV antibiotics over the next 6 weeks. Chest x-ray without any consolidation. Complaining of upper respiratory tract symptoms today. Respiratory viral panel was checked and resulted positive for coronavirus. Patient placed on contact and droplet precautions. Supportive treatment only. Does not need any specific antiviral treatment. Add albuterol inhalation as needed, patient reports a reported history of asthma. Albuterol inhaler additionally added at discharge. June 10, 2024: No respiratory complaints. On daptomycin currently. Couldn't discharge yesterday due to issues related to insurance and abx delivery- status update/ confirmation not available until Wednesday. Stable for discharge from ID standpoint when abx delivery confirmed. june 11, 2024 no new complaints. Stable for discharge however abx delivery for home meds to be confirmed. f/up ID clinic on jun 27. Thank you for this consult, please call with any further questions or concerns Attestations 2 Medical Necessity Statement*: per admitting Coding Level of Care Code Acute Code for Chg Fwd Diagnoses Hardware complicating wound infection, subsequent encounter T84.7XXD Encounter type: subsequent encounter Wound dehiscence T81.30XA
[2024-06-11 16:05] LABS: Glucose Point of Care 212 mg/dL (70-110)
[2024-06-11 20:46] LABS: Glucose Point of Care 141 mg/dL (70-110)
[2024-06-12] VITALS (9 sets, daily range): BP systolic 97–121; BP diastolic 64–81; PULSE 93–116; RESP 15–18; TEMP 36.6–37.7; O2SAT 95–97
[2024-06-12] MEDS: morphine IR 15 mg Tablet PO ×4 (02:36→21:05)
[2024-06-12] MEDS: ondansetron 2 mg/ML SDV 2 mL 4 MG IVP ×2 (06:08→15:03)
[2024-06-12 06:32] LABS: Glucose Point of Care 202 mg/dL (70-110)
[2024-06-12] MEDS: fluoxetine 20 mg Capsule 80 MG PO (09:39)
[2024-06-12] MEDS: metformin 500 mg Tablet PO ×2 (09:39→21:05)
[2024-06-12] MEDS: baclofen 10 mg Tablet PO ×3 (09:40→21:05)
[2024-06-12] MEDS: insulin glargine 100 units/1 mL 20 UNIT SUBCUT (09:40)
[2024-06-12] MEDS: insulin lispro 100 unit/1 mL SUBCUT (09:41)
[2024-06-12] MEDS: gabapentin 300 mg Capsule PO ×3 (09:44→21:05)
[2024-06-12 11:13] LABS: Glucose Point of Care 273 mg/dL (70-110)
--- NOTE | 2024-06-12 12:39 | P.PN_ITS ---
Subjective 2 Subjective: Patient is feeling nauseous seems like maybe she has a poor having a reaction to antibiotics she is get diarrhea and has been vomiting. Vitals/I&O/Wt Last Vital Signs Temp 98.0 F 06/12/24 11:13 Pulse 116 H 06/12/24 11:13 Resp 17 06/12/24 11:13 BP 107/74 06/12/24 11:13 Pulse Ox 97 06/12/24 11:13 O2 Del Method Room Air 06/12/24 11:13 O2 Flow Rate 2 06/07/24 14:09 06/11/24 06/12/24 06/12/24 22:59 06:59 14:59 Intake Total 480 / 960 500 / 1460 720 / 720 Balance 480 / 960 500 / 1460 720 / 720 Weight last 48 hrs Weight 193 lb 3.2 oz Weight 192 lb 12.8 oz Physical Exam 2 Narrative: Patient is laying in bed not feeling well. Data 06/09/24 02:27 06/09/24 02:27 Micro: Microbiology 06/07/24 12:13 Gram Stain - Final Back Anaerobic Culture - Preliminary Abscess Culture - Final Methicillin Resis Staph Aureus A&P Assessment and plan (1) Hardware complicating wound infection: Patient is able to be discharged now however she seems like she maybe has a flu or has a reaction to the antibiotics. Will defer to hospitalist to see what they think is going on below. Qualifiers: Encounter type: subsequent encounter Qualified Code(s): T84.7XXD - Infection and inflammatory reaction due to other internal orthopedic prosthetic devices, implants and grafts, subsequent encounter Attestations 2 Medical Necessity Statement*: Possibly has the flu Coding Level of Care Code Acute Code for Chg Fwd Diagnoses Hardware complicating wound infection, subsequent encounter T84.7XXD Encounter type: subsequent encounter
[2024-06-12] MEDS: DAPTOmycin 500 MG SDV 640 MG IVP (15:05)
--- NOTE | 2024-06-12 15:52 | PM.CONSULT ---
Providers/Reason For Consult Consulting Physician/Specialty*: Frase/Hospitalist Reason for Consult*: flu like symptoms Requesting Physician: Dr Garcia Attending Physician: Anupam Garcia DO Primary Care Provider: BRAD DE MD History of Present Illness History of Present Illness Tasha Molina is a 43 year old female Who originally presented on May when she underwent debridement of a back wound by Dr. Garcia. She has been receiving IV antibiotics and had PICC line placement over the weekend for ongoing management. Overnight last night she began having a lot of nausea and subsequently developed frequent vomiting and diarrhea with too numerous to count episodes of both. She denies any blood in her stools or black tarry stools. No blood in the vomitus. Stools are watery. She has some mild abdominal pain, general malaise, mild cough, mild runny nose,mild sore throat and temperatures around 99. Prior to the onset of these symptoms she was feeling okay overall, given her recent medical issues. Ms. Molina has a history of type 2 diabetes mellitus, chronic pancreatitis, and nonalcoholic fatty liver disease. She has a history of splenic vein thrombosis treated with stents in the past, none currently. Other history obtained as noted below. She has received a flu vaccination this year. Hospitalist were consulted to evaluate for flu like symptoms. There are patients with flu or flu-like illness in the hospital currently. No visitors during stay. Patient lives in [place]. History obtained from her. Review of Systems General: Reports: Other (ROS as per HPI or as noted here) Const: Reports: malaise ENMT: Reports: throat pain (mild) and nasal discharge (clear) Card: Denies: chest pain Resp: Reports: productive cough (clear mucus like phlegm) Musc: Reports: back pain (not worse), extremity pain (not new) and joint stiffness; Denies: neck pain Skin/Breast: Reports: other (no new wounds reported, PICC line area itches some) Neuro: Denies: headache(s) Lewis/Lymph: Reports: other (no new bleeding or bruising) Medications/Allergies Home Medications Medication Instructions Recorded Confirmed Last Taken Type gabapentin 300 mg capsule 300 mg PO TID 04/04/24 06/06/24 06/06/24 History dulaglutide 0.75 mg/0.5 mL 0.75 mg SUBCUT .WEEKLY 04/11/24 06/06/24 05/30/24 History subcutaneous pen injector (Trulicity) insulin glargine 100 unit/mL (3 20 unit SUBCUT QAM 04/11/24 06/06/24 06/06/24 History mL) subcutaneous pen (Lantus Solostar U-100 Insulin) insulin lispro 100 unit/mL 1 unit SUBCUT TID 04/11/24 06/06/24 06/06/24 History subcutaneous pen metformin 500 mg tablet 500 mg PO BID 04/11/24 06/06/24 06/06/24 History baclofen 10 mg tablet 10 mg PO TID 06/06/24 06/06/24 06/06/24 History clonidine HCl 0.1 mg tablet 0.1 mg PO BID 06/06/24 06/06/24 06/06/24 History diclofenac sodium 75 mg 75 mg PO BID 06/06/24 06/06/24 06/06/24 History tablet,delayed release fluoxetine 40 mg capsule (Prozac) 80 mg PO DAILY 06/06/24 06/06/24 06/06/24 History albuterol sulfate 90 mcg/actuation 1 inh inhalation Q6H PRN shortness 06/09/24 Unknown Rx breath activated powder of breath or wheezing #1 ea inhaler,sensor oxycodone 10 mg tablet 10 mg PO Q4H PRN pain 7 days #42 06/09/24 Unknown Rx tabs Allergies Allergy/AdvReac Type Severity Reaction Status Date / Time hydrocodone Allergy ADR-Itching Verified 06/06/24 12:24 lithium Allergy Unknown Verified 06/06/24 12:15 mushroom Allergy Unknown Verified 06/06/24 12:15 trazodone Allergy Unknown Verified 06/06/24 12:15 Current Medications Generic Name Dose Route Start Last Admin Trade Name Freq PRN Reason Stop Dose Admin Acetaminophen 650 mg 06/07/24 12:27 06/11/24 23:10 Acetaminophen 325 Mg Tablet PO 650 mg Q4H PRN Administration Mild Pain or fever >101.5 Baclofen 10 mg 06/07/24 15:00 06/12/24 15:04 Baclofen 10 Mg Tablet PO 10 mg TID BRITTANY Administration Clonidine HCl 0.1 mg 06/07/24 18:00 06/12/24 09:40 Clonidine 0.1 Mg Tablet PO Not Given BID BRITTANY Daptomycin 640 mg 06/10/24 10:00 06/12/24 15:05 Daptomycin 500 Mg Sdv IVP 640 mg Q24H BRITTANY Administration Protocol Docusate Sodium 100 mg 06/07/24 18:00 06/12/24 09:41 Docusate Sodium 100 Mg Capsule PO Not Given BID [facility] Fluoxetine HCl 80 mg 06/08/24 09:00 06/12/24 09:39 Fluoxetine 20 Mg Capsule PO 80 mg DAILY [facility] Administration Gabapentin 300 mg 06/07/24 15:00 06/12/24 15:04 Gabapentin 300 Mg Capsule PO 300 mg TID [facility] Administration Guaifenesin/Dextromethorphan 10 ml 06/08/24 22:58 06/11/24 19:50 Guaifenesin-Dextromethorphan Udc 10 Ml PO 10 ml Q6H PRN Administration COUGH Insulin Glargine 20 unit 06/08/24 09:00 06/12/24 09:40 Insulin Glargine 100 Units/1 Ml SUBCUT 20 unit DAILY [facility] Administration Insulin Human Lispro 0 unit 06/08/24 18:00 06/12/24 11:19 Insulin Lispro 100 Unit/1 Ml SUBCUT Not Given WM&BEDTIME [facility] Protocol Lanolin 1 applic 06/10/24 19:32 06/10/24 20:03 Lanolin Oint 7 Gm TOPICAL 1 applic PRN PRN Administration DRYNESS Magnesium Hydroxide 30 ml 06/07/24 12:27 06/10/24 20:03 Magnesium Hydroxide 30 Ml Udc PO 30 ml Q4H PRN Administration Constipation/indigestion Metformin HCl 500 mg 06/07/24 18:00 06/12/24 09:39 Metformin 500 Mg Tablet PO 500 mg BID [facility] Administration Morphine Sulfate 15 mg 06/11/24 13:39 06/12/24 15:04 Morphine Ir 15 Mg Tablet PO 15 mg Q6H PRN Administration SEVERE PAIN Nicotine 1 patch 06/10/24 14:30 06/12/24 15:14 Nicotine 14 Mg Patch TRANSDERMA Not Given DAILY [facility] Non-Formulary Medication 0.75 mg 06/09/24 09:00 06/09/24 09:42 Dulaglutide [Trulicity] SUBCUT Not Given Q7D [facility] Ondansetron HCl 4 mg 06/07/24 12:27 06/12/24 15:03 Ondansetron 2 Mg/Ml Sdv 2 Ml IVP 4 mg Q6H PRN Administration NAUSEA AND VOMITING PFSH Acute PFSH: Medical History (Updated 06/12/24 @ 19:24 by Charissa Dominguez MD) Migraine Non-alcoholic fatty liver disease Chronic pancreatitis Splenic vein thrombosis history of stents subsequently removed History of successful cardiopulmonary resuscitation reports she quit breathing during surgical procedure in 2023 requiring resuscitation Hidradenitis suppurativa History of MRSA infection history of recurrent MRSA infections Diabetes mellitus, type II Surgical History (Updated 06/12/24 @ 16:51 by Charissa Dominguez MD) History of cholecystectomy History of hysterectomy Status post lumbar spinal fusion (04/12/24) Dr Garcia, T10-L3 posterior spine fusion, T12-L1 laminectomy and bilateral facetectomies, L1-L2 laminectomy and bilateral facetectomies, Kyphotic deformity correction Status post debridement (06/07/24) irrigation and debridement of back wound to bone by Dr Garcia Social History (Updated 06/12/24 @ 19:17 by Charissa Dominguez MD) Smoking and tobacco/nicotine status: current some day tobacco/nicotine user cigarettes [ Other cigarette details: pack per week] Alcohol intake: current Alcohol intake frequency: holidays/special occasions only Vitals/I&O/Wt Last Vital Signs Temp 99.9 F H 06/12/24 15:49 Pulse 114 H 06/12/24 15:49 Resp 18 06/12/24 15:49 BP 116/73 06/12/24 15:49 Pulse Ox 95 06/12/24 15:49 O2 Del Method Room Air 06/12/24 15:49 O2 Flow Rate 2 06/07/24 14:09 06/12/24 06/12/24 06/12/24 06:59 14:59 22:59 Intake Total 500 / 1460 720 / 720 Balance 500 / 1460 720 / 720 Weight last 48 hrs Weight 87.634 kg Weight 87.453 kg Physical Exam Narrative: Patient is awake and alert able to provide history. Looks queasy during conversation. EOMI. Dry membranes. Mild clear rhinorrhea. Neck supple. Lungs clear with no wheezes or rhonchi. Tachycardic, regular rhythm. Abdomen soft and nontender. No rebound or guarding. No edema to lower extremities. PICC line intact. Did not directly examine back wound at this time. Data 06/09/24 02:27 06/12/24 18:22 Micro: Microbiology 06/07/24 12:13 Gram Stain - Final Back Anaerobic Culture - Preliminary Abscess Culture - Final Methicillin Resis Staph Aureus A&P Assessment and plan (1) Flu-like symptoms: Developed today with primarily nausea and vomiting plus diarrhea. Also reporting malaise, cough, sore throat, runny nose also. Recently tested positive for common cold virus. Had temp 99 and some tachycardia today. BP and sats are stable. Differential includes medication side effect, viral illness, pancreatitis, abnormal electrolyte or other chemistry effect, symptoms of systemic process not already identified. Check flu swab Check c diff Check lipase given history of chronic pancreatitis reported Check CMP/CBC EKG IVFs and other supportive care (2) Status post debridement: Back wound, MRSA in cultures POD 5 ID PLAN: Patient will be discharged on daptomycin 8 mg/kg IV every 24 hours over the next 6 weeks until July 20, 2024. Weekly CBC creatinine LFT CPK and CRP ordered. Follow-up in infectious disease clinic on June 27, 2024. Patient has home health arranged to assist with home IV antibiotics. Currently on daptomycin via PICC line (3) Diabetes mellitus, type II: On long and short acting insulin plus metformin at home. A1c 6.2 06/07/24. Qualifiers: Diabetes mellitus senior care insulin use: with senior care use Diabetes mellitus complication status: with neurologic complications Diabetes mellitus complication detail: with unspecified neuropathy Qualified Code(s): E11.40 - Type 2 diabetes mellitus with diabetic neuropathy, unspecified; Z79.4 - long-term (current) use of insulin (4) Chronic pancreatitis: Diagnosis per patient. Reports has had pseudocyt in past. No recent pancreatic symptoms or hospitalizations. Pain not radiating from abdomen to back but does have back pain associated with current and chronic condition. Qualifiers: Pancreatitis type: unspecified pancreatitis type Qualified Code(s): K86.1 - Other chronic pancreatitis (5) PICC (peripherally inserted central catheter) in place: Placed 06/09/2024 for IV antibiotics senior care course (6) BMI 36.0-36.9,adult: Plan Given history of chronic pancreatitis and diabetes will go on and check CMP, lipase and CBC. I have also ordered stool per C. diff given antibiotic use and we will check for influenza given the season and cascade of symptoms. Will empirically start tamiflu for now. Check EKG. Plan to give her a liter of IV fluids and monitor response. If C. diff is negative will allow some Imodium. Will continue PRN antiemetics and other supportive care. Plans discussed with patient. Low threshold to evaluate pancreas further if symptoms/signs worsen. She currently looks better than her symptoms might suggest, but at risk of rapid clinical decline with co-morbid conditions. Will follow while here, thank you for consultation Consult Attestations Medical Necessity Statement: as per attending Diagnoses Flu-like symptoms R68.89 Status post debridement Z98.890 Type 2 diabetes mellitus with diabetic neuropathy, with long-term current use of insulin E11.40; Z79.4 Diabetes mellitus manager intermediate insulin use: with manager intermediate use Diabetes mellitus complication status: with neurologic complications Diabetes mellitus complication detail: with unspecified neuropathy Chronic pancreatitis, unspecified pancreatitis type K86.1 Pancreatitis type: unspecified pancreatitis type PICC (peripherally inserted central catheter) in place Z45.2 BMI 36.0-36.9,adult Z68.36
[2024-06-12 16:54] LABS: Glucose Point of Care 149 mg/dL (70-110)
[2024-06-12] MEDS: acetaminophen 325 mg Tablet 650 MG PO ×2 (17:05→22:04)
[2024-06-12] MEDS: oseltamivir phosphate 75 mg Capsule PO (17:23)
[2024-06-12] MEDS: sodium chloride 0.9% 1,000 ML 100 ML IV (17:23)
[2024-06-12 18:14] LABS: Influenza A by IFA Negative (Negative); Influenza B by IFA Negative (Negative)
[2024-06-12 19:06] LABS: Alanine Aminotransferase 11 U/L (0-33); Albumin Level 3.3 g/dL (3.5-5.2); Alkaline Phosphatase 122 U/L (35-105); Anion Gap 15.2 (5-19); Aspartate Amino Transferase 14 U/L (0-32); Blood Urea Nitrogen 12 mg/dL (6-20); Calcium 8.2 mg/dL (8.5-10.5); Carbon Dioxide 27 mmol/L (22-29); Chloride 98 mmol/L (98-107); Creatinine Clr Calc Pharmacy 121.6397; Globulin 3.9 g/dL (1.3-4.6); Glomerular Filtration Rate 109.1 mL/min (90-130); Glucose 127 mg/dL (65-115); Lipase 9 U/L (13-60); Osmolality Calculated 283 mOsm/kg (285-295); Potassium 4.2 mmol/L (3.5-5.1); Sodium 136 mmol/L (136-145); Total Bilirubin 0.2 mg/dL (0.15-1.2); Total Protein 7.2 g/dL (6.6-8.7)
[2024-06-12 19:27] LABS: C.Diff PCR (Lab) NEGATIVE (Negative)
--- NOTE | 2024-06-12 20:52 | ECG_ITS ---
[facility] Test Date: 2024-06-12 Pat Name: Tasha Molina Department: Room: 250 Gender: Female [employer] K[employer] Tender: : 1980 Requested By: Charissa Dominguez Order Number: [id number] Rocha MD: Alfred Yoon M.D. Measurements Intervals [place] Rate: 99 P: 54 HI: 141 QRS: -3 QRSD: 84 T: 22 QT: 360 QTc: 463 Interpretive Statements SINUS RHYTHM No previous ECG available for comparison Electronically Signed On 06-17-2024 13:53:26 SCRAPER TENDER by Alfred Yoon M.D. [id number]
[2024-06-12] MEDS: guaiFENesin-dextromethorphan UDC 10 mL PO (22:04)
[2024-06-12 22:29] LABS: Basophils % 0.2 %; Eosinophils # 0.1 10^3/uL (0.0-0.8); Eosinophils % 2.6 %; Hematocrit 30.8 % (36-47); Lymphocytes # 0.8 10^3/uL (0.8-4.8); Lymphocytes % 16.3 %; Mean Corpuscular HGB Conc 30.2 g/dL (30-55); Mean Corpuscular Hemoglobin 24.4 pg (27-33); Mean Corpuscular Volume 80.8 fl (85-98); Mean Platelet Volume 9.6 fL (7.4-10.4); Monocytes # 0.3 10^3/uL (0.2-0.9); Monocytes % 6.2 %; Neutrophils # 3.46 10^3/uL (1.8-7.7); Neutrophils % 74.5 %; Nucleated Red Blood Cells % 0 %; Platelet Count 242 10^3/cmm (157-399); Red Blood Count 3.81 10^6/uL (3.85-5.65); White Blood Count 4.65 10^3/uL (3.29-11.43)
[2024-06-13] VITALS (8 sets, daily range): BP systolic 91–119; BP diastolic 58–78; PULSE 100–114; RESP 16–18; TEMP 36.7–36.9; O2SAT 95–100
[2024-06-13] MEDS: acetaminophen 325 mg Tablet 650 MG PO ×2 (02:18→10:44)
[2024-06-13] MEDS: loperamide 2 mg Capsule PO ×2 (02:20→08:07)
[2024-06-13 06:27] LABS: Glucose Point of Care 102 mg/dL (70-110)
[2024-06-13] MEDS: oseltamivir phosphate 75 mg Capsule PO (08:03)
[2024-06-13] MEDS: gabapentin 300 mg Capsule PO (08:03)
[2024-06-13] MEDS: fluoxetine 20 mg Capsule 80 MG PO (08:03)
[2024-06-13] MEDS: metformin 500 mg Tablet PO (08:03)
[2024-06-13] MEDS: cloNIDine 0.1 mg Tablet PO (08:03)
[2024-06-13] MEDS: baclofen 10 mg Tablet PO (08:03)
[2024-06-13] MEDS: nicotine 14 mg Patch 1 PATCH TRANSDERMA (08:04)
[2024-06-13] MEDS: morphine IR 15 mg Tablet PO ×2 (08:07→14:34)
[2024-06-13] MEDS: insulin glargine 100 units/1 mL 20 UNIT SUBCUT (08:08)
[2024-06-13] MEDS: DAPTOmycin 500 MG SDV 640 MG IVP (10:31)
--- NOTE | 2024-06-13 10:37 | CT_ITS ---
WS: [id number] CT ABDOMEN PELVIS TECHNIQUE: Noncontrast CT of the abdomen and pelvis with coronal and sagittal reformatted images. CLINICAL INFORMATION: n/v COMPARISON: None. DLP: 789.[address] scans at [facility] use at least one of these dose optimization techniques: automated e xposure control; mA and/or kV adjustment per patient size (includes targeted exams where dose is matc hed to clinical indication); or iterative reconstruction. FINDINGS: Lung bases are well aerated. Extensive thoracolumbar fusion degrades some images. Prior com minuted compression fracture with retropulsion at L1 with wide decompressive laminectomy defects. Com pression fracture similar to the prior studies. Fluid collection in the subcutaneous soft tissues lik mitch postoperative seroma. Pneumobilia. Hepatomegaly. Noncontrast spleen is normal. Calcifications in the pancreatic tail likely due to chronic pancreatitis. Normal caliber abdominal aorta. Adrenal glands are normal. No hydronephrosis in either kidney. Sigmoi d diverticulosis. No evidence of acute diverticulitis. Mild fluid distention of small bowel with a fe w air-fluid levels. Air-fluid levels in the transverse colon. No evidence of high-grade obstruction. Findings likely due to adynamic ileus. Prior cholecystectomy. Prior hysterectomy. CT/CT abdomen pelvis wo con [id number] IMPRESSION: 1. Findings suspicious for mild adynamic ileus described above. No evidence of high-grade obstruction. Persistent air within the colon. 2. Sigmoid diverticulosis. No evidence of acute diverticulitis. 3. No free fluid in the abdomen or pelvis. 4. Pneumobilia with prior cholecystectomy. 5. Pancreatic calcifications compatible with chronic pancreatitis. 6. Normal retrocecal appendix in the RIGHT upper quadrant. 7. Prior hysterectomy. 8. Postoperative changes lumbar spine described above.
[2024-06-13] MEDS: ondansetron 2 mg/ML SDV 2 mL 4 MG IVP (10:45)
[2024-06-13 10:58] LABS: Glucose Point of Care 141 mg/dL (70-110)
[2024-06-13 12:27] LABS: C.Diff PCR (Lab) NEGATIVE (Negative)
--- NOTE | 2024-06-13 13:02 | PM.DCS ---
Discharge Providers Date of Admission: 06/07/24 14:16 Date of Discharge: June 13, 2024 Attending Provider at Admission: Anupam Garcia DO Attending Provider at Discharge: Anupam Garcia DO Primary Care Provider: BRAD DE MD Diagnoses at Discharge Discharge Diagnosis (1) Flu-like symptoms: Status: Acute (2) Status post debridement: Status: Acute Permanent problem details: irrigation and debridement of back wound to bone by Dr Garcia (3) Diabetes mellitus, type II: Status: Chronic Qualifiers: Diabetes mellitus senior living insulin use: with senior living use Diabetes mellitus complication status: with neurologic complications Diabetes mellitus complication detail: with unspecified neuropathy Qualified Code(s): E11.40 - Type 2 diabetes mellitus with diabetic neuropathy, unspecified; Z79.4 - custodial (current) use of insulin (4) Chronic pancreatitis: Status: Chronic Qualifiers: Pancreatitis type: unspecified pancreatitis type Qualified Code(s): K86.1 - Other chronic pancreatitis (5) PICC (peripherally inserted central catheter) in place: Status: Acute Permanent problem details: placed 06/09/2024 for IV antibiotics (6) BMI 36.0-36.9,adult: Status: Chronic Reason for Visit Reason for Visit: T81.49XA Physical Exam Narrative: Feeling better today Discharge Data Studies Completed and Pending Completed Studies During Hospitalization Category Date Time Status CXRP [XR chest 1V portable [id number]] Routine Exams 06/09/24 08:27 Completed XR thoracic spine 2V 54487 Routine Exams 06/07/24 12:26 Completed Pending at discharge Category Date Time Status CT abdomen pelvis wo con [id number] Routine Cat Scan 06/13/24 10:37 Taken Abscess Culture and Gram Stain Routine Lab 06/07/24 12:13 Results Anaerobic Culture Routine Lab 06/07/24 12:13 Results CBC Auto Diff [Complete Blood Count w/Auto] Routine Lab 06/13/24 10:37 Ordered CMP [Comprehensive Metabolic Panel] Routine Lab 06/13/24 10:37 Ordered CRP [C Reactive Protein] Routine Lab 06/13/24 10:37 Ordered OVA and Parasites, Conc and PE Routine Lab 06/13/24 11:20 Received Procalcitonin Routine Lab 06/13/24 10:37 Ordered Salmonella / Shigella / Campy Routine Lab 06/13/24 11:20 Received Radiology Impressions Thoracic Spine X-Ray 06/07/24 12:26 Impression: Catheter placement. Chest X-Ray 06/09/24 08:27 Impression: Satisfactory placement of right PICC line. Laboratory Results WBC 4.65 10^3/uL (3.29-11.43) 06/12/24 22:03 Corrected WBC Cancelled 06/12/24 18:22 RBC 3.81 10^6/uL (3.85-5.65) L 06/12/24 22:03 Hgb 9.30 g/dL (11.27-16.99) L 06/12/24 22:03 Hct 30.8 % (36-47) L 06/12/24 22:03 MCV 80.8 fl (85-98) L 06/12/24 22:03 MCH 24.4 pg (27-33) L 06/12/24 22:03 MCHC 30.2 g/dL (30-55) 06/12/24 22:03 RDW 15.0 % (12.1-15.1) 06/12/24 22:03 Plt Count 242 10^3/cmm (157-399) 06/12/24 22:03 MPV 9.6 fL (7.4-10.4) 06/12/24 22:03 Gran % Cancelled 06/12/24 18:22 Neut % (Auto) 74.5 % 06/12/24 22:03 Lymph % (Auto) 16.3 % 06/12/24 22:03 [place] % (Auto) 6.2 % 06/12/24 22:03 Eos % (Auto) 2.6 % 06/12/24 22:03 Baso % (Auto) 0.2 % 06/12/24 22:03 Neut # (Auto) 3.46 10^3/uL (1.8-7.7) 06/12/24 22:03 Lymph # (Auto) 0.8 10^3/uL (0.8-4.8) 06/12/24 22:03 [place] # (Auto) 0.3 10^3/uL (0.2-0.9) 06/12/24 22:03 Eos # (Auto) 0.1 10^3/uL (0.0-0.8) 06/12/24 22:03 Baso # (Auto) 0.0 10^3/uL (0.0-0.1) 06/12/24 22:03 Absolute Gran (auto) Cancelled 06/12/24 18:22 Nucleated RBC % (auto) 0 % 06/12/24 22:03 Nucleated RBCs # 0.0 /100WBC 06/12/24 22:03 ESR 11 mm/hr (0-15) 06/07/24 19:26 Sodium 136 mmol/L (136-145) 06/12/24 18:22 Potassium 4.2 mmol/L (3.5-5.1) 06/12/24 18:22 Chloride 98 mmol/L (98-107) 06/12/24 18:22 Carbon Dioxide 27 mmol/L (22-29) 06/12/24 18:22 Anion Gap 15.2 (5-19) 06/12/24 18:22 BUN 12 mg/dL (6-20) 06/12/24 18:22 Creatinine 0.6 mg/dL (0.5-0.9) 06/12/24 18:22 GFR Calculation 109.1 mL/min (90-130) 06/12/24 18:22 Glucose 127 mg/dL (65-115) H 06/12/24 18:22 POC Glucose 141 mg/dL (70-110) H 06/13/24 10:54 Estimat Average Glucose 134 06/07/24 19:26 Hemoglobin A1c 6.3 % (4.0-6.0) H 06/07/24 19:26 Calculated Osmolality 283 mOsm/kg (285-295) L 06/12/24 18:22 Calcium 8.2 mg/dL (8.5-10.5) L 06/12/24 18:22 Phosphorus 2.1 mg/dL (2.5-4.5) L 06/09/24 02:27 Total Bilirubin 0.2 mg/dL (0.15-1.2) 06/12/24 18:22 Direct Bilirubin Cancelled 06/12/24 18:22 AST 14 U/L (0-32) 06/12/24 18:22 ALT 11 U/L (0-33) 06/12/24 18:22 Alkaline Phosphatase 122 U/L (35-105) H 06/12/24 18:22 Creatine Kinase 33 U/L (26-192) 06/07/24 17:13 C-Reactive Protein 78.7 mg/L (0.0-4.9) H 06/07/24 17:13 Total Protein 7.2 g/dL (6.6-8.7) 06/12/24 18:22 Albumin 3.3 g/dL (3.5-5.2) L 06/12/24 18:22 Globulin 3.9 g/dL (1.3-4.6) 06/12/24 18:22 Lipase 9 U/L (13-60) L 06/12/24 18:22 Vancomycin Trough 24.3 ug/mL (10-15) H 06/08/24 21:19 Adenovirus (PCR) Not detected (NOT DETECT) 06/09/24 12:04 C. pneumoniae DNA (PCR) Not detected (NOT DETECT) 06/09/24 12:04 C. difficile (PCR) Negative (Negative) 06/13/24 11:20 Coronavirus (PCR) Negative (Negative) 06/09/24 02:30 Coronavirus 229E (PCR) Detected (NOT DETECT) A 06/09/24 12:04 Human Metapneumovir PCR Not detected (NOT DETECT) 06/09/24 12:04 Influenza A (H1) PCR Not detected (NOT DETECT) 06/09/24 12:04 Influenza A (PCR) Negative (Negative) 06/09/24 02:30 Influ A (H1/09) PCR Not detected (NOT DETECT) 06/09/24 12:04 Influenza A (H3) PCR Not detected (NOT DETECT) 06/09/24 12:04 Influenza Type A Ag Negative (Negative) 06/12/24 17:08 Influenza Type A (PCR) Not detected (NOT DETECT) 06/09/24 12:04 Influenza Type B Ag Negative (Negative) 06/12/24 17:08 Influenza Type B (PCR) Not detected (NOT DETECT) 06/09/24 12:04 M. pneumoniae (PCR) Not detected (NOT DETECT) 06/09/24 12:04 Parainfluenza 1 (PCR) Not detected (NOT DETECT) 06/09/24 12:04 Parainfluenza 2 (PCR) Not detected (NOT DETECT) 06/09/24 12:04 Parainfluenza 3 (PCR) Not detected (NOT DETECT) 06/09/24 12:04 Parainfluenza 4 (PCR) Not detected (NOT DETECT) 06/09/24 12:04 RSV (PCR) Negative (Negative) 06/09/24 02:30 RSV Type A (PCR) Not detected (NOT DETECT) 06/09/24 12:04 RSV Type B (PCR) Not detected (NOT DETECT) 06/09/24 12:04 Entero/Rhino (PCR) Not detected (NOT DETECT) 06/09/24 12:04 SARS-CoV-2 (PCR) Not detected (NOT DETECT) 06/09/24 12:04 Blood Type A Positive 06/08/24 10:34 Rho(D) Type Rh positive 06/08/24 10:34 Antibody Screen Negative 06/08/24 10:34 Crossmatch See Detail 06/08/24 10:34 Vitals Last Vital Signs Temp 98.1 F 06/13/24 11:55 Pulse 100 06/13/24 11:55 Resp 16 06/13/24 11:55 BP 107/73 06/13/24 11:55 Pulse Ox 98 06/13/24 11:55 O2 Del Method Room Air 06/13/24 11:55 O2 Flow Rate 2 06/07/24 14:09 Discharge Plan Discharge Patient Disposition: Home Health Service Condition: Stable Prescriptions: New albuterol sulfate 90 mcg/actuation aero powdr breath act w/sensor 1 inh inhalation Q6H PRN (Reason: shortness of breath or wheezing) Qty: 1 0RF oxycodone 10 mg tablet 10 mg PO Q4H PRN (Reason: pain) 7 Days Qty: 42 0RF Continued gabapentin 300 mg capsule 300 mg PO TID metformin 500 mg Tablet 500 mg PO BID insulin glargine [Lantus Solostar U-100 Insulin] 100 unit/mL (3 mL) Insulin Pen 20 unit SUBCUT QAM Trulicity 0.75 mg/0.5 mL Pen Injector 0.75 mg SUBCUT .WEEKLY insulin lispro 100 unit/mL Insulin Pen 1 unit SUBCUT TID Rx Instructions: greater than 150 takes 1 unit per sliding scale fluoxetine [Prozac] 40 mg Capsule 80 mg PO DAILY clonidine HCl 0.1 mg Tablet 0.1 mg PO BID baclofen 10 mg Tablet 10 mg PO TID diclofenac sodium 75 mg Tablet,Delayed Release (Dr/Ec) 75 mg PO BID Discontinued oxycodone 5 mg capsule 5 mg PO TID PRN (Reason: pain) 10 Days Qty: 30 0RF Discharge Orders: Discharge Order (Routine); Ordered 06/13/24 Ordered By: Anupam Garcia Referrals: [facility] [Other] [facility] [Provider Group] - 06/27/24 11:30 am [facility] [Outside] Anupam Garcia, [Physician] - 06/22/24 2:45 pm () Discharge Diet: Advance as tolerated Discharge Activity: Limit activity as instructed Patient Instructions: Oxycodone, Rapid Release (By mouth), Acute Wound Care (DC), Incision and Drainage (DC), Opioid Safety, Post Anesthesia Care Activity Restrictions/Additional Instructions: Thank you for [facility] for your care! The following is a list of instructions, from your provider, to follow upon your discharge to ensure you have the optimal recovery from your recent injury orsurgery. Follow-up care is a dailey part of your treatment and safety. Be sure to make and go to all appointments, and call your doctor if you are having problems. If you do not already have a follow-up appointment made, call Dr. Garcia office in the next 1-3 days to make follow up appointment for 2 weeks at [phone]. It is also a good idea to know your test results and keep a list of the medicines you take. Medications will be prescribed for you at your provider's discretion. These medications are to be used as instructed; if they are taken more often that prescribed they will not be refilled early and in most cases will not be refilled at all. > When a refill is needed,you should contact daniela van 2-3 business days before your prescription runs out. Medications will NOT be refilled by body shop floorperson providers after hours! > Many pain medications contain Tylenol (Acetaminophen). Do not consume more than 4,000 mg of Tylenol per day in total with any combination ofmedications. > Pain medications can cause constipation. Please use an over the counter stool softener as directed, while taking pain medications. Consulty our local pharmacist with questions or recommendations on stool softeners. If constipation persists, contact our office or your primary care provider. > While under our care,you are not to receive pain medications or other controlled substances from any other provider unless our office is notified and approves. Any attempts to do so will result in refusal to prescribe any further pain medications and possible dismissal from our practice. ? Your wound and/or dressing should remain clean and dry for 2 days after surgery. On postoperative day 2 (48 hours after your surgery) the dressing (if present) should be removed and it is okay to shower and get the incision wet. Pad dry afterwards. No further dressing should be required from that point on. Do not put any creams or ointments on theincision > It is normal for there to be a small amount of discharge (bloody or blood tinged) present from a surgical wound for the first 1-3days. > The wound should be examined twice a day for signs of infection. Mild redness or bruising is to be expected but indications that an infection maybe starting would include; An increase in redness, swelling, or discharge, a foul odor present around the incision, and/or a fever greater than 101 ?F ? Showering is permitted, however we ask that you do not take a bath, sit in a whirlpool / Jacuzzi, or go swimming for 1 month. For only the first 2 days after surgery, lt wilt be necessary for you to cover your wound/dressing with plastic and tape to keep it dry. ? Walking is essential for the healing process after surgery. We would like you to slowly advance your walking. This should be done on relatively flat clear ground (inside or out) or can be done on a treadmill. Remember this goal does not have to happen all at once, slowly increase your distance and duration. This can be broken into more more than one walk per day as tolerated. Patients who walk as directed after surgery rarely require Physical Therapy. In the unlikely event this issue arises your provider will direct hospital staff to make the appropriate arrangements. ? No lifting over 5 pounds {a gallon of milk) or bending/twisting until further notice. Each of these activities places an unnecessary amount of stress onto the body and can impede the delicate healing process. > Instead of bending at the waist, keep your back straight and bend at the knees. > Instead of twisting your torso, keep your back straight and turn your entire body with your feet. ? You may sleep in any position which makes you comfortable. Many patients find comfort sleeping in a reclining chair. It is not abnormal to have difficulty sleeping for the first several weeks following your surgery. We recommend trying Benadry! or Tylenol PM as directed to help with your sleeping difficulties. Both medications are over the counter and available withoutprescription. ? NO SMOKING!!! Smoking dramatically increases the probability of developing postoperative wound infections. ? Common complaints after lumbar and/or thoracic spine surgery include, but are not limited to: numbness and/or tingling in the legs, pain around the incision and surrounding tissues, muscle spasms, or stiffness of the middle to low back. Contact our office if these symptoms persist or if an acute change occurs. ? No driving for the first 3-5days, and not while taking narcotics until seen at your follow-up appointment and cleared. There are no restrictions for riding on short trips, however if you take a longer trip, arrangements should be made to make regular stops to get out of the vehicle and stretch . ? Swelling is an unfortunate event that will take place with any surgery and is the primary source of your postoperative discomfort. While walking and regular approved activities helps control inflammation, there are additional steps you can take to minimizeswelling. > Place ice over the surgical site and surrounding tissue for twenty minutes, followed by applying a low/medium heat (heating pad) for an additional twenty minutes every 1-2 hours as needed for painrelief. > You may use of over the counter anti-inflammatory medications (Ibuprofen, Motrin, Aleve, Advil, etc) as directed on the package label. These types of medicines wm significantly reduce the amount of discomfort you experience after surgery from swelling. It should be noted that if you have and allergy to any of these medications, or a history of ulcers or kidney disease you should consult you primary care provider prior to starting these medications. Discharge Attestations Time Spent in Discharge Care*: less than 30 min Quality Metrics Clinical Quality Measures [ No reported AMI, CVA or VTE this stay] Coding Level of Care Code Acute Code for Chg Fwd Diagnoses Flu-like symptoms R68.89 Status post debridement Z98.890 Type 2 diabetes mellitus with diabetic neuropathy, with long-term current use of insulin E11.40; Z79.4 Diabetes mellitus court administrator insulin use: with court administrator use Diabetes mellitus complication status: with neurologic complications Diabetes mellitus complication detail: with unspecified neuropathy Chronic pancreatitis, unspecified pancreatitis type K86.1 Pancreatitis type: unspecified pancreatitis type PICC (peripherally inserted central catheter) in place Z45.2 BMI 36.0-36.9,adult Z68.36
[2024-06-13 13:13] LABS: Basophils % 0.3 %; Eosinophils # 0.1 10^3/uL (0.0-0.8); Eosinophils % 2.5 %; Hematocrit 28.8 % (36-47); Lymphocytes # 0.5 10^3/uL (0.8-4.8); Lymphocytes % 14.5 %; Mean Corpuscular HGB Conc 29.5 g/dL (30-55); Mean Corpuscular Hemoglobin 24.3 pg (27-33); Mean Corpuscular Volume 82.3 fl (85-98); Mean Platelet Volume 9.6 fL (7.4-10.4); Monocytes # 0.3 10^3/uL (0.2-0.9); Monocytes % 9.5 %; Neutrophils # 2.61 10^3/uL (1.8-7.7); Neutrophils % 72.9 %; Nucleated Red Blood Cells % 0 %; Platelet Count 207 10^3/cmm (157-399); White Blood Count 3.58 10^3/uL (3.29-11.43)
[2024-06-13 13:32] LABS: Alanine Aminotransferase 9 U/L (0-33); Albumin Level 2.8 g/dL (3.5-5.2); Alkaline Phosphatase 90 U/L (35-105); Anion Gap 15.6 (5-19); Aspartate Amino Transferase 11 U/L (0-32); Blood Urea Nitrogen 7 mg/dL (6-20); C Reactive Protein 100.3 mg/L (0.0-4.9); Calcium 7.5 mg/dL (8.5-10.5); Carbon Dioxide 23 mmol/L (22-29); Chloride 96 mmol/L (98-107); Creatinine Clr Calc Pharmacy 145.5105; Glomerular Filtration Rate 134.7 mL/min (90-130); Glucose 113 mg/dL (65-115); Osmolality Calculated 271 mOsm/kg (285-295); Potassium 3.6 mmol/L (3.5-5.1); Sodium 131 mmol/L (136-145); Total Bilirubin 0.2 mg/dL (0.15-1.2); Total Protein 5.8 g/dL (6.6-8.7)
[2024-06-13 13:39] LABS: Procalcitonin 0.12 ng/mL (0-0.5)
[2024-06-13] MEDS: guaiFENesin-dextromethorphan UDC 10 mL PO (14:34)
--- NOTE | 2024-06-13 14:49 | P.PN_ITS ---
Subjective 2 Subjective: Patient was seen this morning, has complaints of nausea and vomiting throughout the night, this morning no nausea, no vomiting no diarrhea although did have episodes of diarrhea overnight, discussed her C. difficile test was negative, discussed a CT scan of her abdomen, nausea control IV fluids she is agreeable CT abdomen pelvis CT/CT abdomen pelvis wo con [id number] IMPRESSION: 1. Findings suspicious for mild adynami c ileus described above. No evidence of high-grade obstruction. Persistent air within the colon. 2. Sigmoid diverticulosis. No evidence of acute diverticulitis. 3. No free fluid in the abdomen or pelv is. 4. Pneumobilia with prior cholecystecto my. 5. Pancreatic calcifications compatible with chronic pancreatitis. 6. Normal retrocecal appendix in the RI GHT upper quadrant. 7. Prior hysterectomy. 8. Postoperative changes lumbar spine d escribed above. -Lipase levels within normal limits, no leukocytosis transaminitis within normal limits -Flulike symptoms, patient's flu testing was negative, positive for coronavirus -CT shows adynamic ileus, patient manage on clear liquid diet, can slowly advance as tolerated, nausea control -Patient was monitored throughout the da y, nausea is under control, diarrhea is under control, will be discharged by the primary team -Discharged with instructions clear liqu id diet slow advance diet as tolerated, Zofran for nausea control, followed up with primary care Vitals/I&O/Wt Last Vital Signs Temp 98.1 F 06/13/24 11:55 Pulse 100 06/13/24 11:55 Resp 16 06/13/24 14:34 BP 107/73 06/13/24 11:55 Pulse Ox 98 06/13/24 11:55 O2 Del Method Room Air 06/13/24 11:55 O2 Flow Rate 2 06/07/24 14:09 06/12/24 06/13/24 06/13/24 22:59 06:59 14:59 Intake Total 980 / 1700 1700 / 3400 960 / 960 Balance 980 / 1700 1700 / 3400 960 / 960 Weight last 48 hrs Weight 87.135 kg Weight 87.634 kg Physical Exam 2 Const: COMMON NORMALS: no acute distress and patient oriented x3 Resp: COMMON NORMALS: normal respiratory effort, No retractions, No use of accessory muscles and clear to auscultation bilaterally AUSCULTATION: clear to auscultation bilaterally Cardio: COMMON NORMALS: regular rate, regular rhythm, S1 normal heart sound present and S2 normal heart sound present RATE: regular rate RHYTHM: r egular rhythm HEART SOUNDS: S1 normal heart sound present and S2 normal heart sound present GI: COMMON NORMALS: Normal to inspection, nondistended, normoactive bowel sounds present and non-tender Extremity: COMMON NORMALS: no pedal edema Neuro: COMMON NORMALS: patient oriented x3 Psych: COMMON NORMALS: mental status grossly normal Data 06/13/24 12:58 06/13/24 12:58 Micro: Microbiology 06/13/24 11:20 Stool Lactoferrin - Final Stool 06/07/24 12:13 Gram Stain - Final Back Anaerobic Culture - Preliminary Abscess Culture - Final Methicillin Resis Staph Aureus 06/07/24 17:13 Blood Culture - Final Blood NO GROWTH AFTER 5 DAYS 06/07/24 17:04 Blood Culture - Final Blood NO GROWTH AFTER 5 DAYS A&P Assessment and plan (1) Chronic pancreatitis: Qualifiers: Pancreatitis type: unspecified pancreatitis type Qualified Code(s): K 86.1 - Other chronic pancreatitis (2) Flu-like symptoms: (3) Nausea: Plan Patient will be discharged today -CT showing adynamic ileus, no bowel obstruction is having bowel movements, nausea under control this afternoon, able to take p.o. intake will be discharged home -Patient was advised if she were to have any abdominal pain, nausea, vomiting, diarrhea come back to the hospital Attestations 2 Medical Necessity Statement*: Patient will be discharged today Diagnoses Chronic pancreatitis, unspecified pancreatitis type K86.1 Pancreatitis type: unspecified pancreatitis type Flu-like symptoms R68.89 Nausea R11.0
--- NOTE | 2024-06-13 15:53 | PC.NURSE ---
Discharge Note Patient discharged to home via Medicaid ride. Discharge instructions reviewed with patient and/or sales representative printing paper. Mobile pharmacy medications and/or prescriptions provided. Belongings/home medications returned. Instructed patient to make sure and stay hydrated with electrolytes and water.
== END 2024-06-13 15:56 | disposition home health service (06) | DRG 516 ==
LOC: MEDSURG 16:07
PROVIDERS: Family Medicine; Hospitalist; Internal Medicine; Student in an Organized Health Care Education/Training Program; Admitting Provider Orthopaedic Surgery; PCP Family Medicine; Visit Provider Orthopaedic Surgery
PROC: 0W9L0ZX Drainage of Lower Back, Open Approach, Diagnostic (ICD-10-PCS; principal; 2024-06-07 11:25)
DX: T84.63XA Infection and inflammatory reaction due to internal fixation device of spine, initial encounter (principal); K56.0 Paralytic ileus; K86.1 Other chronic pancreatitis; T81.328A Disruption or dehiscence of closure of other specified internal operation (surgical) wound, initial encounter; T81.49XA Infection following a procedure, other surgical site, initial encounter; E11.40 Type 2 diabetes mellitus with diabetic neuropathy, unspecified; B97.29 Other coronavirus as the cause of diseases classified elsewhere; K76.0 Fatty (change of) liver, not elsewhere classified; F17.210 Nicotine dependence, cigarettes, uncomplicated; Z86.14 Personal history of Methicillin resistant Staphylococcus aureus infection; Y79.8 Miscellaneous orthopedic devices associated with adverse incidents, not elsewhere classified; Y83.4 Other reconstructive surgery as the cause of abnormal reaction of the patient, or of later complication, without mention of misadventure at the time of the procedure; Z79.4 Long term (current) use of insulin; Z79.84 Long term (current) use of oral hypoglycemic drugs
CPT/HCPCS: 36415; 36416; 36573; 36592; 71045; 72070; 74176; 76000; 80053; 80069; 80202; 82550; 82962; 83036; 83630; 83690; 84145; 85014; 85018; 85025; 85651; 86140; 86850; 86900; 86920; 87040; 87045; 87070; 87075; 87077; 87177; 87186; 87205; 87209; 87427; 87449; 87486; 87493; 87581; 87633; 87637; 87804; 93005; 94640; 96372; 97116; 97161; J0330; J0690; J0696; J0878; J1171; J1815; J1885; J2250; J2270; J2371; J2405; J2704; J3010; J3370; J3490; J7030; J7050; J7120; J7613

== ENCOUNTER → 2024-06-22 14:39 | Outpatient (BNVA) | payer MEDICAID, SELFPAY | PROVIDERS: PCP Family Medicine; Visit Provider Orthopaedic Surgery | DX: Z98.1 Arthrodesis status (principal) | CPT/HCPCS: 99024 ==

== ENCOUNTER → 2024-08-15 15:07 | Outpatient (BNVA) | payer MEDICAID, SELFPAY | PROVIDERS: PCP Family Medicine; Visit Provider Orthopaedic Surgery | DX: T84.7XXD Infection and inflammatory reaction due to other internal orthopedic prosthetic devices, implants and grafts, subsequent encounter (principal); Z98.1 Arthrodesis status | CPT/HCPCS: 72100; 99213 ==

== ENCOUNTER → 2025-04-03 09:12 | Outpatient (BNVA) | payer MEDICAID, SELFPAY | PROVIDERS: PCP Family Medicine; Visit Provider Orthopaedic Surgery | DX: M54.12 Radiculopathy, cervical region (principal); M54.9 Dorsalgia, unspecified; M54.2 Cervicalgia; M54.50 Low back pain, unspecified; M54.16 Radiculopathy, lumbar region; Z98.1 Arthrodesis status | CPT/HCPCS: 72100; 99213 ==